=== PATIENT | male | born 1940 | race Caucasian/White ===

== ENCOUNTER 2016-11-04 09:14 | Inpatient (IN) | payer MEDICARE ==
[2016-11-04] VITALS (10 sets, daily range): BP systolic 96–146; BP diastolic 54–67; PULSE 66–73; RESP 18–20; TEMP 97.6–99; O2SAT 93–98
[~2016-11-04] VITALS: Ht 182.9 cm; Wt 120.0 kg
--- NOTE | 2016-11-04 09:50 | PD ---
HPI Chief Complaint: Altered Mental Status Time Seen by Provider: 09:50 Travel History International Travel<30 days: No Contact w/Intl Traveler<30days: No Traveled to known affect area: No History of Present Illness HPI 76-year-old male came to the emergency room with history of altered mental status. His daughter initiated the transfer to the emergency room from the jail and she was very concerned about her dad's waxing and waning mental status. Patient does have history of dementia. Currently he is awake and aware that he is in [facility]. He is confused regarding the date and the month. He was complaining of some discomfort in his rectal area but the nurse told me he just had a large bowel movement and also had a rectal temperature taken which was 98.8. His vital signs show a blood pressure of 98/ 58. Heart rate is within normal limits. Patient is not the most reliable historian. The history is obtained mainly from the paperwork that came from the jail. The nurse also happened to speak with the daughter over the phone who conveyed that they have been monitoring his ABGs in the jail and they have been fluctuating. [facility] Past Medical History Narrative Medical List of his past medical, surgical, social and family history was reviewed from the nursing note. AAA: Yes Alzheimer's Disease: Yes Atrial Fibrillation: Yes Congestive Heart Failure: Yes COPD: Yes Diabetes: Yes Patient Takes Glucophage: No GERD: Yes Hypertension: Yes Medical other: Yes (RENAL INSUFFICIENCY) Respiratory: Yes Tetanus Vaccination: Unknown Influenza Vaccination: Yes Past Surgical History Abdominal Surgery: Yes (INGUINAL HERNIA REPAIR) Thoracic Surgery: Yes (BACK ) Social History Alcohol Use: No Tobacco Use: No Allergies-Medications (Allergen,Severity, Reaction): Coded Allergies: No Known Allergies (Unverified , 11/04/16) Comments No known drug allergies. Reported Meds & Prescriptions Reported Meds & Active Scripts Active Reported Novolog Inj (Insulin Aspart) 1,000 Unit/10 Ml Vial 0 SQ DIRECTED Sliding Scale as directed. Norvasc (Amlodipine Besylate) 5 Mg Tab 5 Mg PO DAILY Crestor (Rosuvastatin Calcium) 40 Mg Tab 40 Mg PO HS Metoprolol Succinate ER 24 HR (Metoprolol Succinate) 25 Mg Tab 25 Mg PO DAILY Lexapro (Escitalopram Oxalate) 20 Mg Tab 20 Mg PO DAILY Plavix (Clopidogrel Bisulfate) 75 Mg Tab 75 Mg PO DAILY Aspirin 81 Low Dose (Aspirin) 81 Mg Chew 81 Mg CHEW DAILY Lantus Inj (Insulin Glargine) 100 Unit/Ml Inj 30 Units SQ DAILY@2000 Lantus Inj (Insulin Glargine) 100 Unit/Ml Inj 60 Units SQ DAILY@0800 Potassium Chloride CR (Potassium Chloride) 10 Meq Tab 10 Meq PO DAILY Alprazolam 0.5 Mg Tab 0.5 Mg PO Q8H PRN Duoneb (Ipratropium-Albuterol Neb) 0.5-2.5 Mg/3 Ml Neb 1 Nebule INH Q4HR NEB Tramadol (Tramadol HCl) 50 Mg Tab 100 Mg PO Q6H PRN Bumex (Bumetanide) 2 Mg Tab 2 Mg PO BID Famotidine 20 Mg Tab 20 Mg PO BID Florastor (Saccharomyces Boulardii) 250 Mg Cap 500 Mg PO BID Ceftin (Cefuroxime Axetil) 500 Mg Tab 500 Mg PO BID Narrative Medication List of his oral medications reviewed from the jail Review of Systems Except as stated in HPI: all other systems reviewed are Neg Physical Exam Narrative GENERAL: Awake, alert, dementia, no obvious distress, obese. SKIN: Warm and dry. Pale, senile ecchymosis HEAD: Atraumatic. Normocephalic. EYES: Pupils equal and round. No scleral icterus. No injection or drainage. ENT: No nasal bleeding or discharge. Mucous membranes pink and moist. NECK: Trachea midline. No JVD. CARDIOVASCULAR: Regular rate and rhythm. No murmur appreciated. RESPIRATORY: No accessory muscle use. Clear to auscultation. Breath sounds equal bilaterally. GASTROINTESTINAL: Abdomen soft, non-tender, nondistended. Hepatic and splenic margins not palpable. MUSCULOSKELETAL: No obvious deformities. No clubbing. No cyanosis. No edema. NEUROLOGICAL: Awake and dementia. No obvious cranial nerve deficits. Motor grossly within normal limits. Normal speech. PSYCHIATRIC: Appropriate mood and affect; insight and judgment normal. Data Data Last Documented VS Vital Signs Date Time Temp Pulse Resp B/P Pulse Ox O2 Delivery O2 Flow Rate FiO2 11/04/16 11:06 73 18 96/55 97 Nasal Cannula 3 11/04/16 10:29 98.3 Orders Electrocardiogram (11/04/16 09:59) Complete Blood Count With Diff (11/04/16 09:59) Comprehensive Metabolic Panel (11/04/16 09:59) Creatine Kinase (Cpk) (11/04/16 09:59) Prothrombin Time / Inr (Pt) (11/04/16 09:59) Troponin I (11/04/16 09:59) Thyroid Stimulating Hormone (11/04/16 09:59) Lactic Acid Sepsis Protocol (11/04/16 09:59) Urinalysis - C+S If Indicated (11/04/16 09:59) Blood Culture (11/04/16 09:59) Chest, Single Ap (11/04/16 09:59) Ct Brain W/O Iv Contrast(Rout) (11/04/16 09:59) Blood Glucose (11/04/16 09:59) Ecg Monitoring (11/04/16 09:59) Iv Access Insert/Monitor (11/04/16 09:59) Oximetry (11/04/16 09:59) Sodium Chloride 0.9% Flush (Ns Flush) (11/04/16 10:00) Urine Culture (11/04/16 10:30) Admit Order (Ed Use Only) (11/04/16 11:28) Labs Laboratory Tests Test 11/04/16 10:30 White Blood Count 9.5 TH/MM3 Red Blood Count 3.57 MIL/MM3 Hemoglobin 10.5 GM/DL Hematocrit 31.4 % Mean Corpuscular Volume 88.2 FL Mean Corpuscular Hemoglobin 29.5 PG Mean Corpuscular Hemoglobin 33.5 % Concent Red Cell Distribution Width 14.3 % Platelet Count 105 TH/MM3 Mean Platelet Volume 8.2 FL Neutrophils (%) (Auto) 81.0 % Lymphocytes (%) (Auto) 8.3 % Monocytes (%) (Auto) 7.8 % Eosinophils (%) (Auto) 2.7 % Basophils (%) (Auto) 0.2 % Neutrophils # (Auto) 7.7 TH/MM3 Lymphocytes # (Auto) 0.8 TH/MM3 Monocytes # (Auto) 0.7 TH/MM3 Eosinophils # (Auto) 0.3 TH/MM3 Basophils # (Auto) 0.0 TH/MM3 CBC Comment DIFF FINAL Differential Comment Prothrombin Time 12.2 SEC Prothromb Time International 1.1 RATIO Ratio Urine Color YELLOW Urine Turbidity CLEAR Urine pH 7.5 Urine Specific [place] 1.012 Urine Protein 30 mg/dL Urine Glucose (UA) NEG mg/dL Urine Ketones NEG mg/dL Urine Occult Blood NEG Urine Nitrite NEG Urine Bilirubin NEG Urine Urobilinogen LESS THAN 2.0 MG/DL Urine Leukocyte Esterase NEG Urine RBC 1 /hpf Urine WBC 1 /hpf Urine Transitional Epithelial <1 /hpf Cells Urine Bacteria RARE /hpf Urine Granular Casts 1 /lpf Microscopic Urinalysis Comment CATH-CULTURE IND Sodium Level 144 MEQ/L Potassium Level 3.4 MEQ/L Chloride Level 98 MEQ/L Carbon Dioxide Level 39.2 MEQ/L Anion Gap 7 MEQ/L Blood Urea Nitrogen 60 MG/DL Creatinine 3.00 MG/DL Estimat Glomerular Filtration 20 ML/MIN Rate Random Glucose 63 MG/DL Lactic Acid Level 0.8 mmol/L Calcium Level 7.5 MG/DL Total Bilirubin 0.4 MG/DL Aspartate Amino Transf 27 U/L (AST/SGOT) Alanine Aminotransferase 38 U/L (ALT/SGPT) Alkaline Phosphatase 136 U/L Total Creatine Kinase 54 U/L Troponin I 0.07 NG/ML Total Protein 5.7 GM/DL Albumin 2.6 GM/DL Vitamin B12 Level 551 PG/ML Thyroid Stimulating Hormone 2.930 uIU/ML 3rd Gen [facility] Medical Decision Making Medical Screen Exam Complete: Yes Emergency Medical Condition: Yes Medical Record Reviewed: Yes Interpretation(s) Twelve-lead EKG was reviewed by me. Normal sinus rhythm, normal axis, old anterior AL, interventricular conduction delay, nonspecific ST-T wave changes. Heart rate of 69 bpm. Differential Diagnosis UTI, pneumonia, sepsis, intracranial bleed, electrolyte abnormality Narrative Course 11:11 AM chest x-ray was read as left pleural effusion. Awaiting for the blood test and CAT scan to be resulted. 11:22 AM blood test results came back and creatinine is 3. I do not have any old creatinine to compare with. This is his first visit to [place]. Patient will need to be admitted. Procedures EKG Prior to Arrival: No Diagnosis Primary Impression: Altered mental status Qualified Code: R41.0 - Disorientation Additional Impressions: Renal failure Pleural effusion Elevated troponin I level Admitting Information Admitting Physician Requests: Admit Magda Chung MD Nov 04, 2016 09:50
[2016-11-04] MEDS ORDERED: LANTUS2P SQ ×2 (09:54)
[2016-11-04] MEDS ORDERED: POTA10TA8 PO (09:54)
[2016-11-04] MEDS ORDERED: NOVOLOGP2 SQ (09:54)
[2016-11-04] MEDS ORDERED: METO25TA6 PO (09:54)
[2016-11-04] MEDS ORDERED: IPRASOL INH (09:54)
[2016-11-04] MEDS ORDERED: ASPI81CH3 CHEW (09:54)
[2016-11-04] MEDS ORDERED: TRAM50TA PO (09:54)
[2016-11-04] MEDS ORDERED: ALPR0.5T3 PO (09:54)
[2016-11-04] MEDS ORDERED: ROSU40 PO (09:54)
[2016-11-04] MEDS ORDERED: FAMO20TA2 PO (09:54)
[2016-11-04] MEDS ORDERED: FLOR250C PO (09:54)
[2016-11-04] MEDS ORDERED: PLAV75TA29 PO (09:54)
[2016-11-04] MEDS ORDERED: BUME1TAB28 PO (09:54)
[2016-11-04] MEDS ORDERED: CEFT500T3 PO (09:54)
[2016-11-04] MEDS ORDERED: LEXA20TA PO (09:54)
[2016-11-04] MEDS ORDERED: AMLO5 PO (09:54)
--- NOTE | 2016-11-04 10:37 | RADRPT ---
EXAM DATE/TIME: 11/04/2016 09:57 [facility] COMPARISON: No previous studies available for comparison. INDICATIONS : Shortness of breath. MEDICAL HISTORY : None. SURGICAL HISTORY : None. ENCOUNTER: Initial ACUITY: 1 day PAIN SCORE: 0/10 LOCATION: Bilateral chest FINDINGS: The heart size is enlarged. There is hazy density seen over the left chest. The right lung appears cl ear. CONCLUSION: 1. Cardiomegaly. 2. Hazy density in the left chest likely representing some degree of effusion. Andrew Dhaliwal MD on November 04, 2016 at 10:35 Board Certified Radiologist. This report was verified electronically.
[2016-11-04 11:03] LABS: BACTERIA, URINE RARE /hpf; BLOOD, URINE NEG (NEG); GLUCOSE,URINE NEG (NEG); GRANULAR CAST, URINE 1 /lpf; KETONE, URINE NEG (NEG); NITRITE,URINE NEG (NEG); PH, URINE 7.5 (5.0-8.5); TRANSITIONAL EPI CELLS, URINE <1 /hpf; URINE COLOR YELLOW (YELLW/STRAW)
[2016-11-04 11:04] LABS: COMMENT (UR) CATH-CULTURE IND; CULTURE IF INDICATED CATH CULTURE IND
--- NOTE | 2016-11-04 11:04 | RADRPT ---
EXAM DATE/TIME: 11/04/2016 10:52 [facility] COMPARISON: No previous studies available for comparison. INDICATIONS : Mental status change for three days. RADIATION DOSE: 49.35 CTDIvol (mGy) MEDICAL HISTORY : Hypertension. Cerebrovascular disease. Alzheimers. SURGICAL HISTORY : None. ENCOUNTER: Initial ACUITY: 3 days PAIN SCALE: Non-responsive LOCATION: cranial TECHNIQUE: Multiple contiguous axial images were obtained of the head. Using automated exposure control and adj ustment of the mA and/or kV according to patient size, radiation dose was kept as low as reasonably a chievable to obtain optimal diagnostic quality images. FINDINGS: CEREBRUM: The ventricles and cortical sulci are widened. No evidence of midline shift, mass lesion, hemorrhage or acute infarction. No extra-axial fluid collections are seen. POSTERIOR FOSSA: The cerebellum and brainstem are intact. The 4th ventricle is midline. The cerebellopontine angle i s unremarkable. EXTRACRANIAL: The visualized portion of the orbits is intact. SKULL: The calvaria is intact. No evidence of skull fracture. CONCLUSION: 1. No acute abnormality seen. 2. Age-related atrophy. Andrew Dhaliwal MD on November 04, 2016 at 11:02 Board Certified Radiologist. This report was verified electronically.
[2016-11-04 11:05] LABS: AUTOMATED NEUTROPHIL # 7.7 TH/MM3 (1.8-7.7); BASOPHIL % 0.2 % (0.0-2.0); EOSINOPHIL # 0.3 TH/MM3 (0-0.4); EOSINOPHIL % 2.7 % (0.0-4.0); HEMATOCRIT 31.4 % (39.0-51.0); HEMO FLAGS DIFF FINAL; LYMPH % 8.3 % (9.0-44.0); LYMPHOCYTE # 0.8 TH/MM3 (1.0-4.8); MEAN CELL VOLUME 88.2 FL (80.0-100.0); MEAN CORPUSCULAR HEMOGLOBIN 29.5 PG (27.0-34.0); MEAN CORPUSCULAR HGB CONC 33.5 % (32.0-36.0); MONO % 7.8 % (0.0-8.0); PLATELET COUNT 105 TH/MM3 (150-450); RED BLOOD COUNT 3.57 MIL/MM3 (4.50-5.90); RED CELL DISTRIBUTION WIDTH 14.3 % (11.6-17.2); WHITE BLOOD COUNT 9.5 TH/MM3 (4.0-11.0)
[2016-11-04 11:08] LABS: INTERNATIONAL NORMALIZED RATIO 1.1 RATIO; PROTHROMBIN TIME - PATIENT 12.2 SEC (9.8-11.6)
[2016-11-04 11:17] LABS: ANION GAP 7 MEQ/L (5-15); AST (GOT) 27 U/L (15-37); BICARBONATE 39.2 MEQ/L (21.0-32.0); BLOOD UREA NITROGEN 60 MG/DL (7-18); CHLORIDE 98 MEQ/L (98-107); GLOMERULAR FILTRATION RATE 20 ML/MIN (>89); POTASSIUM 3.4 MEQ/L (3.5-5.1); SODIUM (NA) 144 MEQ/L (136-145)
[2016-11-04 11:33] LABS: ALKALINE PHOSPHATASE 136 U/L (45-117); ALT (GPT) 38 U/L (12-78); CREATINE KINASE 54 U/L (39-308); TOTAL BILIRUBIN ADULT 0.4 MG/DL (0.2-1.0)
--- NOTE | 2016-11-04 12:12 | HHI.HP ---
HPI Service [facility] Hospitalists Primary Care Physician No Primary Care Physician Admission Diagnosis ams Chief Complaint: ams Travel History International Travel<30 Days: No Contact w/Intl Traveler <30 Da: No Traveled to Known Affected Are: No History of Present Illness Pt is 76 yo with ckd 4,cad,dm,dementia,copd who was sent to ED from [facility] at request of daughter for waxing and waning mental status. Pt has some degree of dementia but able to give some history. He is currently very tearful and anxious/panicky due to of his in June. He was admitted to [facility] for drainage of perineum abscess then discharged and readmitted 2 days later on 10/24/16 per records. On review of records he was readmitted for volume overload, acute/ckd, sob and copd exacerbation and possible pneumonia in left lower lung. he was seen by nephrology and pulmonary during that hospital stay. His admitting labs included h/h of , wbc 11.9, plt 224. abg 7.29/66/58/92% on nasal canula. bnp 470, bun 31, cr 2.2, gfr 29. he was admitted to ICU for hypercapneic respiratory failure and placed on bipap. he was given iv solumedrol, nebs, treated with Ceftarolin throughout the hospital course and MAR also indicated bumex 4mg iv q6hr from 10/29 to 11/02. On discharge on 11/02 his wbc was 9.8, hgb 10.7, plt 186, bun 66, cr 2.7 and gfr 23. Albumin 3.2. He again now presents today from sn[facility] for "AMS". Pt says his main problem is intermittent sob. Review of Systems Other ams sob Past Family Social History Past Medical History cad(4 stents per records) afib AAA dementia ckd 4 copd chf per records. bph gallstones pad peripheral neuropathy prostate ca. radiation seeds hyperlipidemia htn depression cataract surgery inguinal hernia repair pulmonary embolism Reported Medications Novolog Inj (Insulin Aspart) 1,000 Unit/10 Ml Vial 0 SQ DIRECTED Sliding Scale as directed. Norvasc (Amlodipine Besylate) 5 Mg Tab 5 Mg PO DAILY Crestor (Rosuvastatin Calcium) 40 Mg Tab 40 Mg PO HS Metoprolol Succinate ER 24 HR (Metoprolol Succinate) 25 Mg Tab 25 Mg PO DAILY Lexapro (Escitalopram Oxalate) 20 Mg Tab 20 Mg PO DAILY Plavix (Clopidogrel Bisulfate) 75 Mg Tab 75 Mg PO DAILY Aspirin 81 Low Dose (Aspirin) 81 Mg Chew 81 Mg CHEW DAILY Lantus Inj (Insulin Glargine) 100 Unit/Ml Inj 30 Units SQ DAILY@2000 Lantus Inj (Insulin Glargine) 100 Unit/Ml Inj 60 Units SQ DAILY@0800 Potassium Chloride CR (Potassium Chloride) 10 Meq Tab 10 Meq PO DAILY Alprazolam 0.5 Mg Tab 0.5 Mg PO Q8H PRN Duoneb (Ipratropium-Albuterol Neb) 0.5-2.5 Mg/3 Ml Neb 1 Nebule INH Q4HR NEB Tramadol (Tramadol HCl) 50 Mg Tab 100 Mg PO Q6H PRN Bumex (Bumetanide) 2 Mg Tab 2 Mg PO BID Famotidine 20 Mg Tab 20 Mg PO BID Florastor (Saccharomyces Boulardii) 250 Mg Cap 500 Mg PO BID Ceftin (Cefuroxime Axetil) 500 Mg Tab 500 Mg PO BID Allergies: Coded Allergies: No Known Allergies (Unverified , 11/04/16) Family History nc Social History hx etohism per records Physical Exam Vital Signs Vital Signs Date Time Temp Pulse Resp B/P Pulse Ox O2 Delivery O2 Flow Rate FiO2 11/04/16 11:06 73 18 96/55 97 Nasal Cannula 3 11/04/16 10:29 98.3 98 Nasal Cannula 3 11/04/16 09:34 18 95 Nasal Cannula 3 11/04/16 09:27 99.0 69 18 123/54 94 Laboratory Laboratory Tests Test 11/04/16 10:30 White Blood Count 9.5 Red Blood Count 3.57 Hemoglobin 10.5 Hematocrit 31.4 Mean Corpuscular Volume 88.2 Mean Corpuscular Hemoglobin 29.5 Mean Corpuscular Hemoglobin 33.5 Concent Red Cell Distribution Width 14.3 Platelet Count 105 Mean Platelet Volume 8.2 Neutrophils (%) (Auto) 81.0 Lymphocytes (%) (Auto) 8.3 Monocytes (%) (Auto) 7.8 Eosinophils (%) (Auto) 2.7 Basophils (%) (Auto) 0.2 Neutrophils # (Auto) 7.7 Lymphocytes # (Auto) 0.8 Monocytes # (Auto) 0.7 Eosinophils # (Auto) 0.3 Basophils # (Auto) 0.0 CBC Comment DIFF FINAL Differential Comment Prothrombin Time 12.2 Prothromb Time International 1.1 Ratio Urine Color YELLOW Urine Turbidity CLEAR Urine pH 7.5 Urine Specific [place] 1.012 Urine Protein 30 Urine Glucose (UA) NEG Urine Ketones NEG Urine Occult Blood NEG Urine Nitrite NEG Urine Bilirubin NEG Urine Urobilinogen LESS THAN 2.0 Urine Leukocyte Esterase NEG Urine RBC 1 Urine WBC 1 Urine Transitional Epithelial <1 Cells Urine Bacteria RARE Urine Granular Casts 1 Microscopic Urinalysis Comment CATH-CULTURE IND Sodium Level 144 Potassium Level 3.4 Chloride Level 98 Carbon Dioxide Level 39.2 Anion Gap 7 Blood Urea Nitrogen 60 Creatinine 3.00 Estimat Glomerular Filtration 20 Rate Random Glucose 63 Lactic Acid Level 0.8 Calcium Level 7.5 Total Bilirubin 0.4 Aspartate Amino Transf 27 (AST/SGOT) Alanine Aminotransferase 38 (ALT/SGPT) Alkaline Phosphatase 136 Total Creatine Kinase 54 Troponin I 0.07 Total Protein 5.7 Albumin 2.6 Thyroid Stimulating Hormone 2.930 3rd Gen Date/Time Procedure Status Source Growth 11/04/16 10:35 Aerobic Blood Culture Received Blood Peripheral Pending 11/04/16 10:35 Anaerobic Blood Culture Received Blood Peripheral Pending 11/04/16 10:30 Urine Culture Received Urine Catheterized Urine Pending Result Diagram: 11/04/16 1030 11/04/16 1030 Assessment and Plan Problem List: (1) Acute worsening of stage 4 chronic kidney disease Status: Acute Plan: Pt is 76 yr man recently admitted to [facility] for perineum abscess then readmitted on 10/24 for hypercapneic respiratory failure, copd exacerbation left lung pna, acute/ckd with volume overload. He was sent to [facility] on 11/02 and sent here today for sob/ams complaints. acute on ckd 4..could be prerenal from diuretics sob...probably anxiety/panick component. grieving of ..but also cxr shows hazy left lung field...evaluate for significant effusion. Pt was being treated for copd/pna at the other hospital. at present no apparent exacerbation or pna. AMS.. Pt said to have some degree of dementia. waxing/waning confusion reported could be multifactorial from medications or kadeem, depression. will evaluate to assure no acute hypercapnea. check metabolic panel. also his bg was [address] chest to evaluate left lung field hold diuretic tonight and reassess cr/gfr in AM telemetry abg echo cont nebs scheduled for copd consider renal consult in AM PT eval in AM anxiolytics for anxiety/panick attacks. monitor bg closely for fluctuation/hypoglycemia. (2) Altered mental status Status: Acute Plan: above (3) DM (diabetes mellitus) Status: Chronic Plan: has hypoglycemia on admitssion of 63 lower basal insulin for now monitor ssi. (4) COPD (chronic obstructive pulmonary disease) Status: Chronic Plan: cont nebs. check abg (5) CAD (coronary artery disease) Status: Chronic Plan: 4 stents per records cont home meds (6) HTN (hypertension) Status: Chronic (7) Dementia Status: Chronic (8) Depression Status: Chronic Plan: still grieving loss of in June. very anxious and panicky also. (9) Thrombocytopenia Status: Acute Plan: see above Physician Certification 2 Midnight Certification Type: Admission for Inpatient Services Order for Inpatient Services 3The services are ordered in accordance with Medicare regulations or non- Medicare payer requirements, as applicable. In the case of services not specified as inpatient-only, they are appropriately provided as inpatient services in accordance with the 2-midnight benchmark. Estimated LOS (days): 3 3 days is the estimated time the patient will need to remain in the hospital, assuming treatment plan goals are met and no additional complications. Post-Hospital Plan: SNF Problem Qualifiers (1) Altered mental status: Qualified Code: R41.0 - Disorientation Santi Ramirez MD Nov 04, 2016 12:12
[2016-11-04] MEDS ORDERED: POTASSIUM CHLORIDE 20 MEQ CONTROLLED RELEASE TAB PO ONE (14:00)
[2016-11-04] MEDS: ALPRAZolam 0.5 MG TAB PO PRN (14:25)
--- NOTE | 2016-11-04 15:18 | RADRPT ---
EXAM DATE/TIME: 11/04/2016 14:25 [facility] COMPARISON: No previous studies available for comparison. INDICATIONS : Short of breath. Abnormal chest x-ray. RADIATION DOSE: 10.84 CTDIvol (mGy) MEDICAL HISTORY : Alzheimer's Congestive heart failure. Aneurysm, abdominal. Hypertension. Diabetes. SURGICAL HISTORY : Inguinal hernia repair. ENCOUNTER: Initial ACUITY: 1 day PAIN SCALE: 0/10 LOCATION: Chest TECHNIQUE: Volumetric scanning of the chest was performed. Using automated exposure control and adjustment of t he mA and/or kV according to patient size, radiation dose was kept as low as reasonably achievable to obtain optimal diagnostic quality images. FINDINGS: There is a mild left pleural effusion. There is accompanying atelectasis or consolidation at the posterior left lower lobe. There is some minimal suspected atelectasis at the posterior aspec t of right lower lobe. No focal masses are seen. Coronary artery calcifications are seen. No areas of adenopathy ar e seen. There is some focal areas of increased density seen within the gallbladder likely representing small calcif ied gallstones. The gallbladder does appear distended. The bony structures are unremarkable. CONCLUSION: 1. Mild left pleural effusion with some accompanying atelectasis or consolidation at the posterior left lung base. 2. Minimal suspected atelectasis at the posterior right lower lobe. 3. Possible tiny gallstones. Andrew Dhaliwal MD on November 04, 2016 at 14:54 Board Certified Radiologist. This report was verified electronically.
[2016-11-04] MEDS: RESP: ALBUTEROL 2.5 MG/IPRATROPIUM 0.5 MG NEB (SCH) NEB ×2 (15:33→20:04)
[2016-11-04] MEDS: INSULIN ASPART SUPPLEMENTAL SCALE SQ SCH ×2 (16:00→21:00)
[2016-11-04] MEDS ORDERED: BUMETANIDE 1 MG TAB PO SCH (21:00)
[2016-11-04] MEDS: INSULIN DETEMIR 100 UNITS/ML VIAL SQ SCH (21:13)
[2016-11-04] MEDS: ATORVASTATIN 80 MG TAB PO SCH (21:13)
[2016-11-04] MEDS: LACTOBACILLUS ACIDOPHILUS TAB PO SCH (21:13)
[2016-11-05] VITALS (11 sets, daily range): BP systolic 120–130; BP diastolic 57–62; PULSE 66–79; RESP 16–21; TEMP 97.6–98.2; O2SAT 96–100
[2016-11-05] MEDS: ALPRAZolam 0.5 MG TAB PO PRN ×3 (00:04→20:30)
[2016-11-05] MEDS: traMADol HCL 50 MG TAB PO PRN ×3 (03:28→22:29)
[2016-11-05] MEDS: INSULIN ASPART SUPPLEMENTAL SCALE SQ SCH ×4 (05:00→20:32)
[2016-11-05 05:27] LABS: AUTOMATED NEUTROPHIL # 7.6 TH/MM3 (1.8-7.7); BASOPHIL # 0.1 TH/MM3 (0-0.2); BASOPHIL % 0.6 % (0.0-2.0); EOSINOPHIL # 0.3 TH/MM3 (0-0.4); EOSINOPHIL % 3.2 % (0.0-4.0); HEMATOCRIT 30.1 % (39.0-51.0); HEMO FLAGS DIFF FINAL; LYMPH % 9.1 % (9.0-44.0); LYMPHOCYTE # 0.9 TH/MM3 (1.0-4.8); MEAN CELL VOLUME 89.9 FL (80.0-100.0); MEAN CORPUSCULAR HEMOGLOBIN 30.4 PG (27.0-34.0); MEAN CORPUSCULAR HGB CONC 33.8 % (32.0-36.0); MONO % 8.2 % (0.0-8.0); NEUT % 78.9 % (16.0-70.0); PLATELET COUNT 100 TH/MM3 (150-450); RED BLOOD COUNT 3.35 MIL/MM3 (4.50-5.90); RED CELL DISTRIBUTION WIDTH 13.9 % (11.6-17.2); WHITE BLOOD COUNT 9.6 TH/MM3 (4.0-11.0)
[2016-11-05 05:46] LABS: POTASSIUM 3.6 MEQ/L (3.5-5.1)
[2016-11-05 06:25] LABS: BLOOD GAS BASE EXCESS 10.7 mmol/L (-2-2); BLOOD GAS CARBOXYHEMOGLOBIN 1.9 % (0-4); BLOOD GAS HCO3 35 mmol/L (22-26); BLOOD GAS METHEMOGLOBIN 0.8 % (0-2); BLOOD GAS O2 HGB SATURATION 92 % (90-100); BLOOD GAS OXYGEN CONTENT 17.4 Vol % (12.0-20.0); BLOOD GAS PCO2 53 mmHg (38-42); BLOOD GAS PO2 76 mmHg (61-120); BLOOD GAS TOTAL HGB 13.4 G/DL (12.0-16.0); TEMP CORR TO 98.6
[2016-11-05 06:26] LABS: CRITICAL VALUE YES; DRAW SITE RT RADIAL; FIO2 21 %; NUMBER OF ARTERIAL PUNCTURES 1; OXYGEN DEVICE ROOM AIR; STAT NO; ULNAR PULSE PRESENT
[2016-11-05] MEDS: RESP: ALBUTEROL 2.5 MG/IPRATROPIUM 0.5 MG NEB (SCH) NEB ×4 (08:34→19:05)
[2016-11-05] MEDS: INSULIN DETEMIR 100 UNITS/ML VIAL SQ SCH ×2 (09:00→20:30)
[2016-11-05] MEDS: LACTOBACILLUS ACIDOPHILUS TAB PO SCH ×2 (09:03→20:30)
[2016-11-05] MEDS: POTASSIUM CHLORIDE 10 MEQ CONTROLLED RELEASE TAB PO SCH (09:03)
[2016-11-05] MEDS: amLODIPine BESYLATE 5 MG TAB PO SCH (09:03)
[2016-11-05] MEDS: ESCITALOPRAM OXALATE 20 MG TAB PO SCH (09:03)
[2016-11-05] MEDS: ASPIRIN 81 MG CHEW TAB CHEW SCH (09:03)
[2016-11-05] MEDS: METOPROLOL SUCCINATE 25 MG EXTENDED RELEASE TAB PO SCH (09:03)
[2016-11-05] MEDS: CLOPIDOGREL 75 MG TAB PO SCH (09:03)
--- NOTE | 2016-11-05 12:03 | EC ---
Study Study Date:11/05/2016 STUDY CONCLUSIONS SUMMARY - Left ventricle: The cavity size was normal. Wall thickness was normal. Systolic function was normal. The estimated ejection fraction was in the range of 55% to 60%. Wall motion was normal; there were no regional wall motion abnormalities. - Mitral valve: Mild regurgitation. - Pulmonary arteries: PA peak pressure: 39mm Hg (S). If LV function is below 40, please consider prescribing an ACEI or ARB or document rationale for non-use. PROCEDURE DATA STUDY STATUS: Elective. Procedure: Transthoracic echocardiography. Image quality was good. Scanning was performed from the parasternal, apical, and subcostal acoustic windows. Study completion: The patient tolerated the procedure well. Transthoracic echocardiography. M-mode, complete 2D, complete spectral Doppler, and color Doppler. Patient status: Inpatient. CARDIAC ANATOMY LEFT VENTRICLE: The cavity size was normal. Wall thickness was normal. Systolic function was normal. The estimated ejection fraction was in the range of 55% to 60%. Wall motion was normal; there were no regional wall motion abnormalities. AORTIC VALVE: Trileaflet; normal thickness leaflets. Doppler: Transvalvular velocity was within the normal range. There was no stenosis. No regurgitation. AORTA: Aortic root: The aortic root was normal in size. MITRAL VALVE: Structurally normal valve. Doppler: Transvalvular velocity was within the normal range. There was no evidence for stenosis. Mild regurgitation. LEFT ATRIUM: The atrium was normal in size. RIGHT VENTRICLE: The cavity size was normal. Wall thickness was normal. PULMONIC VALVE: Doppler: Transvalvular velocity was within the normal range. There was no evidence for stenosis. No regurgitation. TRICUSPID VALVE: Structurally normal valve. Doppler: Transvalvular velocity was within the normal range. No regurgitation. PULMONARY ARTERY: The main pulmonary artery was normal-sized. Systolic pressure was within the normal range. RIGHT ATRIUM: The atrium was normal in size. PERICARDIUM: There was no pericardial effusion. SYSTEMIC VEINS: Inferior vena cava: The vessel was normal in size. BASIC MEASUREMENTS ADULT Normal Left ventricle LV internal dimension, ED, chordal level, *52.1 mm 43-52 PLAX LV internal dimension, ES, chordal level, 37.9 mm 23-38 PLAX Fractional shortening, chordal level, PLAX *27 % >29 LV posterior wall thickness, ED 14.1 mm IVS/LVPW ratio, ED 1.12 <1.3 Ventricular septum Septal thickness, ED 15.8 mm Aortic valve Leaflet separation 26 mm 15-26 Right ventricle RV internal dimension, ED, PLAX 32.6 mm 19-38 BASIC MEASUREMENTS ADULT Normal Aortic valve Leaflet separation 26 mm 15-26 Aorta Root diameter, ED *38 mm 20-37 Left atrium Anterior-posterior dimension, ES 40 mm 19-40 LA/aortic root ratio 1.05 DOPPLER MEASUREMENTS ADULT Normal Main pulmonary artery Pressure, S *39 mm Hg =30 Mitral valve Peak E-wave velocity 65.2 cm/s Peak A-wave velocity 67.6 cm/s Peak E/A ratio 1 Tricuspid valve Regurgitant peak velocity 267 cm/s Peak RV-RA gradient, S 29 mm Hg Maximal regurgitant velocity 267 cm/s Systemic veins Estimated CVP 10 mm Hg Right ventricle RV pressure, S *39 mm Hg <30 LEGEND: Mean values are shown as u=mean value. Asterisk (*) herrera values outside specified normal range. Prepared and signed by Isidoro Mullen [id number]
--- NOTE | 2016-11-05 12:41 | HHI.PR ---
Subjective Remarks No new complaints. Objective Vitals Vital Signs Date Time Temp Pulse Resp B/P Pulse Ox O2 Delivery O2 Flow Rate FiO2 11/05/16 12:24 97.9 66 20 120/59 96 11/05/16 08:35 98.0 72 20 128/62 98 11/05/16 08:34 98 Nasal Cannula 2.00 11/05/16 08:30 Nasal Cannula 3.00 11/05/16 08:00 73 11/05/16 06:30 96 11/05/16 04:00 97.8 66 18 129/58 100 11/05/16 00:00 Nasal Cannula 2.00 11/05/16 00:00 98.2 71 18 127/60 99 11/05/16 00:00 Nasal Cannula 2.00 11/04/16 23:48 66 11/04/16 21:00 Nasal Cannula 3.00 11/04/16 20:04 93 Nasal Cannula 2.00 11/04/16 20:00 Nasal Cannula 3.00 11/04/16 20:00 98.4 70 20 138/64 97 11/04/16 17:50 97.6 73 20 138/64 93 11/04/16 16:24 72 18 146/67 97 Nasal Cannula 3 11/04/16 14:23 94 Nasal Cannula 2.00 11/04/16 13:05 69 18 124/59 94 Nasal Cannula 2 11/04/16 11/04/16 11/05/16 15:00 23:00 07:00 Intake Total 160 ml 480 ml Balance 160 ml 480 ml Intake Oral 160 ml 480 ml # Voids 3 3 Result Diagram: 11/05/1651311/05/16513 Other Results Item Value Date Time Blood Gas HCO3 35 mmol/L H 11/05/16613 Blood Gas Base Excess 10.7 mmol/L H 11/05/16613 Blood Gas Oxygen Saturation 92 % 11/05/16613 Arterial Blood pH 7.44 H 11/05/16613 Arterial Blood Partial Pressure CO2 53 mmHg *H 11/05/16613 Arterial Blood Partial Pressure O2 76 mmHg 11/05/16613 Arterial Blood Oxygen Content 17.4 Vol % 11/05/16613 Arterial Blood Carboxyhemoglobin 1.9 % 11/05/16613 Oxygen Delivery Device ROOM AIR 3/13/17 0614 Blood Gas Inspired Oxygen 21 % 11/05/16 0614 Imaging Objective Remarks GENERAL: This is a well-nourished, well-developed patient, in no apparent distress. CARDIOVASCULAR: Regular rate and rhythm without murmurs, gallops, or rubs. RESPIRATORY: Clear to auscultation. Breath sounds equal bilaterally. No wheezes , rales, or rhonchi. GASTROINTESTINAL: Abdomen soft, non-tender, nondistended. Normal active bowel sounds MUSCULOSKELETAL: Extremities without clubbing, cyanosis, or edema. NEURO: Alert & Oriented x4 to person, place, time, situation. Moves all ext x4 A/P Problem List: (1) Acute worsening of stage 4 chronic kidney disease Status: Acute Plan: Pt is 76 yr man recently admitted to [facility] for perineum abscess then readmitted on 10/24 for hypercapneic respiratory failure, copd exacerbation left lung pna, acute/ckd with volume overload. He was sent to [facility] on 11/02 and sent here today for sob/ams complaints. acute on ckd 4..could be prerenal from diuretics echo cont nebs scheduled for copd consider renal consult in AM PT eval in AM anxiolytics for anxiety/panick attacks. monitor bg closely for fluctuation/hypoglycemia. (2) Altered mental status Status: Acute Plan: - CT brain (11/04/16) --> NO acute findings - likely multifactorial: dementia?, chronic hypercapnic respiratory failure, hypoglycemia, uremia - will address possible reversible causes - obtain free T4, folate, RPR - TSH, B12 --> WNL - see below (3) COPD (chronic obstructive pulmonary disease) Status: Chronic Plan: - likely anxiety, chronic hypercapnia contributing to SOB - continue albuterol/atrovent - ABG (11/05/16) --> Arterial Blood Partial Pressure CO2 53 mmHg - start nightly BiPap - request Pulmonary Consult (4) DM (diabetes mellitus) Status: Chronic Plan: - had hypoglycemia on admitssion of 63 - Pt was hypoglycemic this AM (11/05/16) at 45 and given juice - levemir further decreased to 15 units BID, will adjust upwards if this proves necessary - continue SSI (5) CAD (coronary artery disease) Status: Chronic Plan: 4 stents per records cont home meds - echocardiogram --> pending - ASA, plavix, metoprolol, lipitor (6) HTN (hypertension) Status: Chronic Plan: - metoprolol, norvasc (7) Dementia Status: Chronic (8) Depression Status: Chronic Plan: still grieving loss of in June. very anxious and panicky also. - lexapro, xanax (9) Thrombocytopenia Status: Acute Plan: - observe Problem Qualifiers (1) Altered mental status: Qualified Code: R41.0 - Disorientation (2) DM (diabetes mellitus): Qualified Code: E11.8 - Type 2 diabetes mellitus with complication, with long- term current use of insulin (3) CAD (coronary artery disease): Qualified Code: I25.10 - Coronary artery disease involving [place] heart without angina pectoris, unspecified vessel or lesion type (4) HTN (hypertension): Qualified Code: I10 - Essential hypertension Louie Chapin DO Nov 05, 2016 12:41
--- NOTE | 2016-11-05 14:53 | EKG ---
Date Performed: 11/04/2016 Time Performed: 08:28:47 PTAGE: 76 years EKG: Sinus rhythm MODERATE INTRAVENTRICULAR CONDUCTION DELAY NONSPECIFIC ST & T-WAVE ABNORMALITY ABNORMAL ECG NO PREVIOUS TRACING DOCTOR: Nika Cabrera Interpretating Date/Time 11/05/2016 14:49:16
[2016-11-05 14:56] LABS: FREE T4 1.09 NG/DL (0.76-1.46)
[2016-11-05] MEDS: ATORVASTATIN 80 MG TAB PO SCH (20:30)
[2016-11-05] MEDS: SODIUM CHLORIDE 0.9% FLUSH 5 ML FLUSH IVF PRN (20:32)
--- NOTE | 2016-11-05 22:16 | MB ---
cc: SWATHI POTTS MD DATE OF CONSULTATION 11/05/[address] Louie Chapin REASON FOR CONSULTATION COPD and altered mental status. HISTORY OF THE PRESENT ILLNESS Mr. Malik is a pleasant 76-year-old male with history of COPD, obstructive sleep apnea, history of dementia. The patient was recently admitted at a [facility] twice, one time he had renal abscess drainage done. The other time was chronic obstructive pulmonary disease exacerbation and fluid overload. Now he comes to the hospital with altered mental status. He had a workup done in the hospital. His blood gas shows pH 7.44, pCO2 53, pO2 76, bicarb 35 on room air. His WBC count is 9.6, hemoglobin 10.2, hematocrit 30.1 and MCV 89, platelet count 100. His sodium 145, potassium 3.6, chloride 101, CO2 38, BUN 52, creatinine 2.73, glucose 45. IMAGING His CT scan of the brain shows no acute abnormality. CT scan of the chest shows minimal left atelectasis with effusion or consolidation, possible underlying gallstones. The patient is on nasal cannula. He has hiccups. He denies any nausea or vomiting. PAST MEDICAL HISTORY His past medical history is significant for: 1. A history of COPD. 2. Obstructive sleep apnea; 3. Atrial fibrillation. 4. Coronary artery disease. 5. Chronic kidney disease. 6. Congestive heart failure. 7. History of gallstone. 8. Peripheral neuropathy. 9. History of CA of the prostate status post radiation seeds. 10. History of pulmonary embolism. MEDICATIONS He is currently takin. Insulin 15 units q. 12-hour. 2. Amlodipine 5 mg a day. 3. Aspirin 81 mg a day. 4. Plavix 75 mg a day. 5. Lexapro 20 mg a day. 6. Toprol XL 25 mg a day. 7. Potassium 10 mEq a day. 8. Lipitor 40 mg. 9. Xanax p.r.n. ALLERGIES NO KNOWN DRUG ALLERGIES. SOCIAL HISTORY History of alcohol use. Denies any smoking. FAMILY HISTORY Noncontributory. REVIEW OF SYSTEMS Cannot assess. PHYSICAL EXAMINATION GENERAL: Shows a well built, well-nourished elderly male shortness of breath, not in any acute distress. VITAL SIGNS: Blood pressure 130/60, heart rate 70, respirations 21, temperature 97.6. HEENT: Pupils are equal and reactive to light . Oral mucosa, nasal mucosa normal. NECK: Supple. JVP not raised. CHEST: Slightly decreased breath sounds at the bases. CARDIOVASCULAR: S1, S2 normal. ABDOMEN: Benign. EXTREMITIES: Trace pedal edema. IMPRESSION 1. COPD. 2. Obstructive sleep apnea. 3. Compensated respiratory acidosis. 4. Chronic kidney disease. 5. Diabetes mellitus. 6. Underlying dementia. 7. Atrial fibrillation. 8. History of pulmonary embolism. PLAN We will use C-PAP at night time if possible. The patient's family can bring the C-PAP from his home, that way he can use his own mask. We will give him aerosol treatment with albuterol and Atrovent. Supplement his oxygen. We will keep the saturation greater than 92%. Monitor his blood sugar and electrolytes. Further treatment will depend on the course in the hospital. Thank you Dr. Chapin for this consultation. MD POP Silva/[place] /5:23 PM /8:55 PM ARMAND
[2016-11-06] VITALS (12 sets, daily range): BP systolic 118–131; BP diastolic 57–64; PULSE 66–73; RESP 18–20; TEMP 97.2–98.1; O2SAT 94–100
[2016-11-06] MEDS: ALPRAZolam 0.5 MG TAB PO PRN ×2 (06:15→22:43)
[2016-11-06] MEDS: traMADol HCL 50 MG TAB PO PRN (06:15)
[2016-11-06] MEDS: INSULIN ASPART SUPPLEMENTAL SCALE SQ SCH ×4 (06:17→20:05)
[2016-11-06] MEDS: RESP: ALBUTEROL 2.5 MG/IPRATROPIUM 0.5 MG NEB (SCH) NEB ×4 (08:00→19:10)
[2016-11-06] MEDS: INSULIN DETEMIR 100 UNITS/ML VIAL SQ SCH ×2 (09:00→20:05)
[2016-11-06] MEDS: amLODIPine BESYLATE 5 MG TAB PO SCH (09:48)
[2016-11-06] MEDS: ESCITALOPRAM OXALATE 20 MG TAB PO SCH (09:53)
[2016-11-06] MEDS: POTASSIUM CHLORIDE 10 MEQ CONTROLLED RELEASE TAB PO SCH (09:53)
[2016-11-06] MEDS: ASPIRIN 81 MG CHEW TAB CHEW SCH (09:53)
[2016-11-06] MEDS: CLOPIDOGREL 75 MG TAB PO SCH (09:53)
[2016-11-06] MEDS: LACTOBACILLUS ACIDOPHILUS TAB PO SCH ×2 (09:53→20:05)
[2016-11-06] MEDS: METOPROLOL SUCCINATE 25 MG EXTENDED RELEASE TAB PO SCH (09:53)
[2016-11-06 10:16] LABS: RAPID PLASMA REAGIN SCREEN NON-REACTIVE (NON-REACTVE)
--- NOTE | 2016-11-06 15:29 | HHI.PR ---
Subjective Remarks Per nursing, pt was awake most of last night. Pt had some anxiety and received xanax around 6AM. Pt fell this AM trying to ambulate back from toilet to bed. He did NOT request assitance. Pt has been sleeping most of the day, but readily awakens and answers questions appropriately. Pt consumed most of his breakfast, but did NOT wake up for lunch. Objective Vitals Vital Signs Date Time Temp Pulse Resp B/P Pulse Ox O2 Delivery O2 Flow Rate FiO2 11/06/16 12:00 98.1 68 20 120/58 100 11/06/16 09:40 66 11/06/16 08:30 Nasal Cannula 3.00 11/06/16 08:01 96 Nasal Cannula 3.00 11/06/16 08:00 97.9 71 20 118/57 98 11/06/16 04:13 97.7 70 20 131/64 98 11/06/16 04:00 97.7 70 20 131/64 98 11/06/16 00:16 97.4 71 20 120/60 94 11/05/16 20:36 97.8 73 16 122/57 96 11/05/16 20:00 Nasal Cannula 3.00 11/05/16 20:00 73 11/05/16 16:06 97.6 79 21 130/60 99 11/05/16 15:40 98 Nasal Cannula 2.00 11/05/16 11/05/16 11/06/16 15:00 23:00 07:00 Intake Total 360 ml 240 ml Balance 360 ml 240 ml Intake Oral 360 ml 240 ml # Voids 3 1 # Bowel Movements 0 Result Diagram: 11/05/16 0514 11/05/16 0514 Imaging Last Impressions Head CT 11/04/16958 Signed Impressions: Service Date/Time: Friday, November 04, 2016 10:52 - CONCLUSION: 1. No acute abnormality seen. 2. Age-related atrophy. Andrew Dhaliwal MD Chest X-Ray 11/04/16958 Signed Impressions: Service Date/Time: Friday, November 04, 2016 09:57 - CONCLUSION: 1. Cardiomegaly. 2. Hazy density in the left chest likely representing some degree of effusion. Andrew Dhaliwal MD Chest CT 11/04/16 0000 Signed Impressions: Service Date/Time: Friday, November 04, 2016 14:25 - CONCLUSION: 1. Mild left pleural effusion with some accompanying atelectasis or consolidation at the posterior left lung base. 2. Minimal suspected atelectasis at the posterior right lower lobe. 3. Possible tiny gallstones. Andrew Dhaliwal MD Objective Remarks GENERAL: This is a well-nourished, well-developed patient, in no apparent distress. CARDIOVASCULAR: Regular rate and rhythm without murmurs, gallops, or rubs. RESPIRATORY: Clear to auscultation. Breath sounds equal bilaterally. No wheezes , rales, or rhonchi. GASTROINTESTINAL: Abdomen soft, non-tender, nondistended. Normal active bowel sounds MUSCULOSKELETAL: Extremities without clubbing, cyanosis, or edema. NEURO: Alert & Oriented x4 to person, place, time, situation. Moves all ext x4 A/P Problem List: (1) Acute worsening of stage 4 chronic kidney disease Status: Acute Plan: - Pt is 76 yr man recently admitted to [facility] for perineum abscess - then readmitted on 10/24 for hypercapneic respiratory failure, copd exacerbation - left lung pna, acute/ckd with volume overload. - He was sent to [facility] on 11/02 and then sent to [place] for sob/ams complaints. - acute on ckd 4..could be prerenal from diuretics - diuretics on hold - observe clinically - repeat BMP, mag in AM - PT - DVT prophylaxis (2) Altered mental status Status: Acute Plan: - CT brain (11/04/16) --> NO acute findings - likely multifactorial: dementia?, chronic hypercapnic respiratory failure, hypoglycemia, uremia - will address possible reversible causes - obtain free T4, folate, RPR --> WNL - TSH, B12 --> WNL - see below (3) COPD (chronic obstructive pulmonary disease) Status: Chronic Plan: - Comgmt with Pulm Medicine, Dr. Thomason - likely anxiety, chronic hypercapnia contributing to SOB - continue albuterol/atrovent - ABG (11/05/16) --> Arterial Blood Partial Pressure CO2 53 mmHg - start nightly BiPap (4) DM (diabetes mellitus) Status: Chronic Plan: - had hypoglycemia on admitssion of 63 - Pt was hypoglycemic this AM (11/05/16) at 45 and given juice - AM blood sugar (11/06/16) 68 (11/06/16) - levemir further decreased to 10 units BID, will adjust upwards if this proves necessary - continue SSI (5) CAD (coronary artery disease) Status: Chronic Plan: 4 stents per records cont home meds - echocardiogram --> pending - ASA, plavix, metoprolol, lipitor (6) HTN (hypertension) Status: Chronic Plan: - metoprolol, norvasc (7) Dementia Status: Chronic (8) Depression Status: Chronic Plan: still grieving loss of in June. very anxious and panicky also. - lexapro, xanax (9) Thrombocytopenia Status: Acute Plan: - observe Problem Qualifiers (1) Altered mental status: Qualified Code: R41.0 - Disorientation (2) DM (diabetes mellitus): Qualified Code: E11.8 - Type 2 diabetes mellitus with complication, with long- term current use of insulin (3) CAD (coronary artery disease): Qualified Code: I25.10 - Coronary artery disease involving [place] heart without angina pectoris, unspecified vessel or lesion type (4) HTN (hypertension): Qualified Code: I10 - Essential hypertension Louie Chapin DO Nov 06, 2016 15:29
--- NOTE | 2016-11-06 18:18 | HHI.PR ---
Subjective Remarks 76 YOWM With COPD,SULEIMAN, Dementia,CKD Sleeps a lot Did't use CPAP Good appetite no Distress Objective Vital Signs Vital Signs Date Time Temp Pulse Resp B/P Pulse Ox O2 Delivery O2 Flow Rate FiO2 11/06/16 16:03 98 Nasal Cannula 3.00 11/06/16 16:00 97.7 68 20 126/59 100 11/06/16 12:00 98.1 68 20 120/58 100 11/06/16 09:40 66 11/06/16 08:30 Nasal Cannula 3.00 11/06/16 08:01 96 Nasal Cannula 3.00 11/06/16 08:00 97.9 71 20 118/57 98 11/06/16 04:13 97.7 70 20 131/64 98 11/06/16 04:00 97.7 70 20 131/64 98 11/06/16 00:16 97.4 71 20 120/60 94 11/05/16 20:36 97.8 73 16 122/57 96 11/05/16 20:00 Nasal Cannula 3.00 11/05/16 20:00 73 I/O 11/05/16 11/05/16 11/05/16 11/06/16 11/06/16 11/06/16 07:00 15:00 23:00 07:00 15:00 23:00 Intake Total 480 ml 360 ml 240 ml 480 ml Balance 480 ml 360 ml 240 ml 480 ml Intake Oral 480 ml 360 ml 240 ml 480 ml # Voids 3 3 1 3 # Bowel Movements 0 2 Result Diagram: 11/05/1651311/05/16 0514 Objective Remarks GENERAL: WMWN WM, mild sob SKIN: Warm and dry. HEAD: Normocephalic. EYES: No scleral icterus. No injection or drainage. NECK: Supple, trachea midline. No JVD or lymphadenopathy. CARDIOVASCULAR: Regular rate and rhythm without murmurs, gallops, or rubs. RESPIRATORY: Breath sounds equal bilaterally. No accessory muscle use. GASTROINTESTINAL: Abdomen soft, non-tender, nondistended. MUSCULOSKELETAL: No cyanosis, or edema. BACK: Nontender without obvious deformity. No CVA tenderness. A/P Assessment and Plan COPD SULEIMAN Compensated resp acidosis CKD AF Dementia PLAN: Will Try CPAP at night Supplement 02 Aerosol nebs Monitor Matt Fowler MD Nov 06, 2016 18:18
[2016-11-06] MEDS: ATORVASTATIN 80 MG TAB PO SCH (20:05)
[2016-11-07] VITALS (10 sets, daily range): BP systolic 116–131; BP diastolic 57–65; PULSE 69–75; RESP 18–22; TEMP 97.3–99.2; O2SAT 94–100
[2016-11-07] MEDS: traMADol HCL 50 MG TAB PO PRN ×2 (00:35→08:34)
[2016-11-07] MEDS: INSULIN ASPART SUPPLEMENTAL SCALE SQ SCH ×4 (06:15→21:41)
[2016-11-07 07:42] LABS: MAGNESIUM 2.1 MG/DL (1.5-2.5); POTASSIUM 3.9 MEQ/L (3.5-5.1)
[2016-11-07] MEDS: METOPROLOL SUCCINATE 25 MG EXTENDED RELEASE TAB PO SCH (08:33)
[2016-11-07] MEDS: ESCITALOPRAM OXALATE 20 MG TAB PO SCH (08:33)
[2016-11-07] MEDS: amLODIPine BESYLATE 5 MG TAB PO SCH (08:33)
[2016-11-07] MEDS: ALPRAZolam 0.5 MG TAB PO PRN (08:33)
[2016-11-07] MEDS: LACTOBACILLUS ACIDOPHILUS TAB PO SCH ×2 (08:34→21:41)
[2016-11-07] MEDS: CLOPIDOGREL 75 MG TAB PO SCH (08:34)
[2016-11-07] MEDS: POTASSIUM CHLORIDE 10 MEQ CONTROLLED RELEASE TAB PO SCH (08:34)
[2016-11-07] MEDS: ASPIRIN 81 MG CHEW TAB CHEW SCH (08:34)
[2016-11-07] MEDS: INSULIN DETEMIR 100 UNITS/ML VIAL SQ SCH ×2 (08:34→21:40)
[2016-11-07] MEDS: RESP: ALBUTEROL 2.5 MG/IPRATROPIUM 0.5 MG NEB (SCH) NEB ×4 (08:43→19:29)
--- NOTE | 2016-11-07 12:21 | HHI.PR ---
Subjective Remarks Pt c/o continued bouts of anxiety. Less hiccups. Objective Vitals Vital Signs Date Time Temp Pulse Resp B/P Pulse Ox O2 Delivery O2 Flow Rate FiO2 11/07/16 09:06 69 11/07/16 08:43 98 Nasal Cannula 3.00 11/07/16 04:00 97.9 70 18 123/58 98 11/07/16 03:05 72 122/65 11/07/16 00:30 97.7 73 18 121/57 98 11/06/16 23:05 68 118/60 11/06/16 20:35 98 30 11/06/16 20:00 Nasal Cannula 3.00 11/06/16 20:00 68 11/06/16 20:00 97.2 73 18 120/58 98 11/06/16 16:03 98 Nasal Cannula 3.00 11/06/16 16:00 97.7 68 20 126/59 100 11/06/16 11/06/16 11/07/16 15:00 23:00 07:00 Intake Total 480 ml 240 ml 240 ml Output Total 100 ml Balance 480 ml 240 ml 140 ml Intake Oral 480 ml 240 ml 240 ml Output Urine Total 100 ml # Voids 3 1 # Bowel Movements 2 Result Diagram: 11/05/16 0514 11/07/16 0530 Imaging Last Impressions Head CT 11/04/16 0959 Signed Impressions: Service Date/Time: Friday, November 04, 2016 10:52 - CONCLUSION: 1. No acute abnormality seen. 2. Age-related atrophy. Andrew Dhaliwal MD Chest X-Ray 11/04/16 0959 Signed Impressions: Service Date/Time: Friday, November 04, 2016 09:57 - CONCLUSION: 1. Cardiomegaly. 2. Hazy density in the left chest likely representing some degree of effusion. Andrew Dhaliwal MD Chest CT 11/04/16 0000 Signed Impressions: Service Date/Time: Friday, November 04, 2016 14:25 - CONCLUSION: 1. Mild left pleural effusion with some accompanying atelectasis or consolidation at the posterior left lung base. 2. Minimal suspected atelectasis at the posterior right lower lobe. 3. Possible tiny gallstones. Andrew Dhaliwal MD Objective Remarks GENERAL: This is a well-nourished, well-developed patient, in no apparent distress. CARDIOVASCULAR: Regular rate and rhythm without murmurs, gallops, or rubs. RESPIRATORY: Clear to auscultation. Breath sounds equal bilaterally. No wheezes , rales, or rhonchi. GASTROINTESTINAL: Abdomen soft, non-tender, nondistended. Normal active bowel sounds MUSCULOSKELETAL: Extremities without clubbing, cyanosis, or edema. NEURO: Alert & Oriented x4 to person, place, time, situation. Moves all ext x4 A/P Problem List: (1) Acute worsening of stage 4 chronic kidney disease Status: Acute Plan: - Pt is 76 yr man recently admitted to [facility] for perineum abscess - then readmitted on 10/24 for hypercapneic respiratory failure, copd exacerbation - left lung pna, acute/ckd with volume overload. - He was sent to [facility] on 11/02 and then sent to [place] for sob/ams complaints. - acute on ckd 4..could be prerenal from diuretics - Pt's Creatinine was 1.59 (08/21/16) - Creatinine 3.00 (11/04/16), Cr 2.61 (11/08/16) - continue to hold diuretics - start IVFs with NS with 20mEq KCL @ 75 ml/hour for 2 liters - observe closely for volume overload - repeat BMP/Mg in AM - PT, will d/c to Acute Rehab, [facility], at the end of this hospitalization - DVT prophylaxis (2) Chronic combined systolic and diastolic CHF (congestive heart failure) Status: Acute Plan: - echocardiogram (10/14/16), findings reviewed EF - EF 30-35% - diastolic dysfunction noted, but NOT staged - global hypokinesis - lasix on hold since admission d/t LUCINDA, will need to restart once renal fxn has improved - CXR (11/18/16) --> improved, less interstitial infiltrate from prior CXR (3) Altered mental status Status: Acute Plan: - CT brain (11/04/16) --> NO acute findings - likely multifactorial: dementia?, chronic hypercapnic respiratory failure, hypoglycemia, uremia - obtain free T4, folate, RPR --> WNL - TSH, B12 --> WNL - pt has underlying dementia (4) COPD (chronic obstructive pulmonary disease) Status: Chronic Plan: - Comgmt with Pulm Medicine, Dr. Thomason - likely anxiety, chronic hypercapnia contributing to SOB - continue duonebs, decrease to q6h - ABG (11/05/16) --> pCO2 53 mmHg - ABG (11/08/16) --> pCO2 55 mmHg - nightly BiPap, pt having difficulty tolerating his BiPap (5) Chronic hypercapnic respiratory failure Status: Acute Plan: - see above (6) DM (diabetes mellitus) Status: Chronic Plan: - had hypoglycemia on admitssion of 63 - Pt was hypoglycemic this AM (11/05/16) at 45 and given juice - AM blood sugar (11/06/16) 68 (11/06/16) - levemir further decreased to 8 units BID, will adjust upwards if this proves necessary - continue SSI (7) CAD (coronary artery disease) Status: Chronic Plan: 4 stents per records cont home meds - echocardiogram --> pending - ASA, plavix, metoprolol, lipitor (8) HTN (hypertension) Status: Chronic Plan: - metoprolol, norvasc (9) Dementia Status: Chronic (10) Depression Status: Chronic Plan: still grieving loss of in June. very anxious and panicky also. - lexapro, xanax - Pt with sporadic difficulties with anxiety - request Psychiatry consultation - consider scheduled xanax or seroquel (11) Thrombocytopenia Status: Acute Plan: - observe Problem Qualifiers (1) Altered mental status: Qualified Code: R41.0 - Disorientation (2) DM (diabetes mellitus): Qualified Code: E11.8 - Type 2 diabetes mellitus with complication, with long- term current use of insulin (3) CAD (coronary artery disease): Qualified Code: I25.10 - Coronary artery disease involving [place] heart without angina pectoris, unspecified vessel or lesion type (4) HTN (hypertension): Qualified Code: I10 - Essential hypertension (5) Dementia: Qualified Code: F03.91 - Dementia with behavioral disturbance, unspecified dementia type (6) Depression: Louie Chapin DO Nov 07, 2016 12:21
[2016-11-07] MEDS ORDERED: PILL SPLITTER OTHER PRN (14:45)
--- NOTE | 2016-11-07 15:21 | MB ---
cc: ANDRAE TOMAS M.D. DATE OF CONSULTATION: 11/07/2016 HISTORY OF PRESENT ILLNESS This 76-year-old white male with multiple medical problems was admitted due to "altered mental status". Psychiatric consultation is requested by Dr. Chapin/Dr. Ramirez for evaluation and assistance in the management of "depression". Prior to evaluation I discussed the case with Dr. Chapin who provided some background information. Due to the patient's multiple medical problems which includes chronic kidney disease, coronary artery disease, diabetes mellitus, COPD, he has been hospitalized a few times and [facility]. His of 60 years had in June of last year and since then he has been increasingly depressed and anxious. He was started on Lexapro and Xanax recently. Per Dr. Chapin the plans are for him to be discharged to rehab sometime later this week. SIGNIFICANT AVAILABLE LAB REPORTS CBC with differential essentially unremarkable. Blood glucose on 11/05 was 45, rechecked today 112. BUN on 11/05 was quite elevated at 52, repeated today 39. Serum creatinine also on 11/05 was elevated at 2.73, repeated today 2.39. Serum ammonia level less than 10. T4 was normal. Folate levels normal. B12 Level report pending. PT 12.2 elevated. INR 1.1. Routine urinalysis shows proteinuria, rare bacteria, cath culture indicated. RPR nonreactive. CT scan of the head negative for any acute process, age appropriate atrophy. Chest x-ray shows cardiomegaly, he has a density in the left chest likely representing some degree of effusion. MEDICATIONS Current medications: 1. Levemir. 2. Norvasc. 3. Aspirin. 4. Plavix. 5. Lexapro 20 mg daily. 6. Toprol. 7. Potassium. 8. Lipitor. 9. Lactobacillus. 10. Xanax 0.5 mg q.8 hours p.r.n. for anxiety. 11. Tramadol 100 mg q.6 hours p.r.n. pain. At the time of this evaluation, Mr. Malik looks somewhat depressed but was overall pleasant and cooperative. He was able to smile somewhat later in the session while talking about the recent presidential elections. When asked what his understanding of the reason for this hospitalization he responded, "I have been having a lot of medical issues. I have been depressed. I have been feeling anxious". He mentioned he started feeling "depressed" the week before his in June of 2016. Apparently, she suffered from Alzheimer's and her health deteriorated gradually over the years. He mentioned he at times would cry, especially at night. He has been having difficulty falling asleep and would wake up in the middle of the night, his appetite had declined and had lost about 15 pounds in the past 2 months. In addition, he stated that his memory and concentration also has been declining gradually and he had lost interest in activities he had enjoyed doing previously "I enjoyed traveling but not anymore". He denied entertaining any suicidal thoughts but had entertained wish "I wish I had before she did, I miss her". He denied any active suicidal intent or plan "I can never do this, I have my sons, my grandkids and I even have two great grandkids". He denied any previous suicide attempts. On further direct questioning he did not give any history suggestive of bipolar affective disorder. He denied any alcohol or drug abuse. Further exploration revealed that he has three sons who live in the area and are very supportive of him. In addition he has several other friends. PAST PSYCHIATRIC HISTORY He denied any previous psychiatric intervention. PAST MEDICAL HISTORY 1. History of coronary artery disease status post four stents. 2. Atrial fibrillation. 3. Abdominal aortic aneurysm. 4. Chronic kidney disease. 5. COPD. 6. Congestive heart failure. 7. Benign prostatic hypertrophy. 8. Peripheral arterial disease. 9. Peripheral neuropathy. 10. Status post carcinoma of prostate. 11. Hyperlipidemia. 12. Hypertension. 13. Status post cataract surgery. 14. Status post inguinal hernia repair. 15. Status post pulmonary embolism. ALLERGIES He denied any drug allergies. FAMILY HISTORY According to him his parents about 8 years ago and they both 4 years ago. He had six brothers, four last year and two are living. Of the two sisters, one living. He denied any family history of psychiatric illness or substance abuse. PERSONAL AND SOCIAL HISTORY He grew up in [place] and served in the [employer]. After finishing high school he attended 3 years at [employer]. 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 He denied any alcohol or drug abuse. He denied any history of physical or sexual trauma. As mentioned he was to his only for 60 years and has three sons and a daughter. He has good relationship with all of them. He denied any history of involvement with the law. CLINICAL OBSERVATION AND MENTAL STATUS EXAMINATION At the time of this evaluation, Mr. Malik presented as a reasonably well-groomed, bearded white male who looked his stated age. He looked somewhat depressed but overall was pleasant and cooperative with this interviewer. His response to questions were relevant. No overt anger or hostility was noticed. No bizarre behavior or mannerisms were noticed. His speech was soft, coherent, appropriate. His affect was blunted, appropriate. Subjectively, he described his mood as "I have been feeling depressed, anxious". Thought processes did not reveal any looseness of association or flight of ideas. No bandar delusions, auditory or visual hallucinations were noticed or reported. He denied active suicidal or homicidal ideations or intent at this time. He denied any previous suicide attempts. Cognitive functions: He was alert, oriented to place and person, not to time. He gave the month as "maybe November or maybe October". Memory: Immediate, he could do 5 digits forward, 3 digits backward. Recent, he could recall only 1/3 objects after 5 minutes. Remote, he could recall presidents up to President Obama only. His attention and concentration was impaired. He could do serial sevens up to 86 only. His fund of knowledge was adequate, for example, he knew the capital of the [facility] as "[place]", capital [facility] "[place]". His judgment and insight was felt to be good. DIAGNOSTIC IMPRESSION Major depressive disorder, moderate, single episode. Coronary artery disease, atrial fibrillation, abdominal aortic aneurysm, COPD, congestive heart failure, peripheral arterial disease, peripheral neuropathy, status post carcinoma of the prostate, radiation seed, hyperlipidemia, hypertension, status post pulmonary embolism, diabetes mellitus. FORMULATION AND RECOMMENDATIONS Based on this evaluation and the background information available to me at this time, Mr. Malik is experiencing moderate degree of depression as manifested by persistent feelings of sadness, neurovegetative symptoms. His depression is compounded by several psychosocial stressors, i.e., the recent of his , of parents and siblings, multiple medical problems resulting in restrictive lifestyle. In addition, he is also exhibiting cognitive deficits which appears to multifactorial, i.e., multiple medical issues including chronic kidney disease, cardiovascular factors, etc. To alleviate his depression I concur with the plans of starting him on Lexapro. However, I noticed that he is also on tramadol which can cause serotoninergic syndrome in combination with Lexapro. As such, unless absolutely needed I would recommend reducing the dose significantly and have taken the liberty of making this change. To reduce his anxiety, he needs to continue on the Xanax but in a smaller dose and on a routine basis instead of p.r.n. I recommended grief counselor to him to which he was agreeable. In addition, he also needs to continue with outpatient psychiatric followup, in addition to individual psychotherapy and this can be arranged through the [facility]. For the sake of completeness, I have taken the liberty of ordering urine drug screen, calcium and B12 levels, ESR and LEXII. I discussed my recommendations and followup plans with Mr. Malik and he was supportive of it. Thank you Dr. Chapin/Dr. Ramirez for allowing me to participate in the care of Mr. Malik. MD KAREEN Griffith/PATRICIA /2:07 PM /2:36 PM
--- NOTE | 2016-11-07 16:27 | PD.CONS ---
Provisional Diagnosis Admission Date Nov 04, 2016 at 11:31 [place] I. Major depressive disorder, single episode, moderate, without psychosis, vs grieving, adjustment disorder with anxiety [place] II. Deferred [place] III. CAD, HTN, CHF, COPD,CKD [place] IV. Recent of his [place] V. 55 History of Present Illness Service Psychiatry Consult Requested By Primary Care Physician No Primary Care Physician HPI The patient is a 76 year-old man, , domiciled with his nephew in [place] , retired, with psychiatric history of depression and anxiety, questionable dementia, treated with Lexapro 20 mg prescribed by PCP, no previous psychiatric hospitalizations, no previous suicidal attempts, extensive medical history of CAD, HTN, CHF, COPD, diabetes, end-stage 4 CKD, hospitalized due to altered mental status. Consulted to psychiatry for symptoms of depression and anxiety. On psychiatric evaluation today patient was in his room and laid down, calm, cooperative and pleasant. Patient explained that he has been struggling with depression in the last [address] His [address] way last August after having a progressive deteriorating dementia. After this he has been increasingly depressed, unable to grasp a sense of reality, he described himself in a black hole "unable to get out", with persistent lack of motivation, lack of energy, and suicidal thoughts. However, patient says that he keeps his attachment to live, "I have 3 boys that I love", he also reports deep spirituality and moral beliefs "I don't believe in suicidality, I would be unable to hurt myself". Patient says that his wish is to get better and be happy "that is what she would want from me at this moment, I know it". During the evaluation patient is tearful at times, reflectful and thoughtful. He endorses anxiety and insomnia mostly related with his current medical conditions and the pain and distress caused by them. He explains that he is not dealing with continuous lack of air and thinking constantly in the possibility of dying with pain. Patient expresses his desire to try antidepressants, but he is hesitant to take benzodiazepines or any narcotics that could be potentially addictive. Patient is fully oriented 3, no attention deficit, no fluctuation of consciousness, no confusion, no gross cognitive impairment observed at this moment. No agitation or aggressive behaviors are present. Patient denies the use of drugs and alcohol. Review of Systems Constitutional: COMPLAINS OF: Fatigue, DENIES: Diaphoretic episodes, Fever, Weight gain, Weight loss, Chills, Dizziness, Change in appetite, Night Sweats Endocrine: DENIES: Heat/cold intolerance, Polydipsia, Polyuria, Polyphagia Eyes: DENIES: Blurred vision, Diplopia, Eye inflammation, Eye pain, Vision loss , Photosensitivity, Double Vision Ears, nose, mouth, throat: COMPLAINS OF: Tinnitus, Hearing loss, Vertigo, Nasal discharge, Oral lesions, Throat pain, Hoarseness, Ear Pain, Running Nose, Epistaxis, Sinus Pain, Toothache, Odynophagia Respiratory: COMPLAINS OF: Cough, Shortness of breath, DENIES: Apneas, Snoring , Wheezing, Hemoptysis, Sputum production Cardiovascular: DENIES: Chest pain, Palpitations, Syncope, Dyspnea on Exertion , PND, Lower Extremity Edema, Orthopnea, Claudication Gastrointestinal: DENIES: Abdominal pain, Black stools, Bloody stools, Constipation, Diarrhea, Nausea, Vomiting, Difficulty Swallowing, Anorexia Musculoskeletal: DENIES: Joint pain, Muscle aches, Stiffness, Joint Swelling, Back pain, Neck pain Integumentary: DENIES: Abnormal pigmentation, Nail changes, Pruritus, Rash Hematologic/lymphatic: DENIES: Bruising, Lymphadenopathy Neurologic: DENIES: Abnormal gait, Headache, Localized weakness, Paresthesias, Seizures, Speech Problems, Tremor, Poor Balance Psychiatric: COMPLAINS OF: Anxiety, Depression, DENIES: Confusion, Mood changes, Hallucinations, Agitation, Suicidal Ideation, Homicidal Ideation, Delusions Past Family Social History Coded Allergies: No Known Allergies (Unverified , 11/04/16) Reported Medications Insulin Aspart Inj (Novolog Inj)1,000 Unit/10 Ml Vial SQ DIRECTED #10 ML Ref 0 Sliding Scale as directed. 11/04/16 Amlodipine (Norvasc)5 Mg Tab5 Mg PO DAILY #30 TAB Ref 0 11/04/16 Rosuvastatin (Crestor)40 Mg Tab40 Mg PO HS #30 TAB Ref 0 11/04/16 Metoprolol Succinate ER 24 HR 25 Mg Tab25 Mg PO DAILY #30 TAB Ref 0 11/04/16 Escitalopram (Lexapro)20 Mg Tab20 Mg PO DAILY #30 TAB Ref 0 11/04/16 Clopidogrel (Plavix)75 Mg Tab75 Mg PO DAILY #30 TAB Ref 0 11/04/16 Aspirin (Aspirin 81 Low Dose)81 Mg Chew81 Mg CHEW DAILY #30 TAB 11/04/16 Insulin Glargine Inj (Lantus Inj)100 Unit/Ml Inj30 Units SQ daily@2000 11/04/16 Insulin Glargine Inj (Lantus Inj)100 Unit/Ml Inj60 Units SQ daily@0800 11/04/16 Potassium Chloride ER (Potassium Chloride CR)10 Meq Tab10 Meq PO DAILY 11/04/16 Alprazolam 0.5 Mg Tab0.5 Mg PO Q8H PRN (ANXIETY) Ref 0 11/04/16 Ipratropium-Albuterol Neb (Duoneb)0.5-2.5 Mg/3 Ml Neb1 Nebule INH Q4HR NEB # 120 NEBULE Ref 0 11/04/16 Tramadol 50 Mg Ahv283 Mg PO Q6H PRN (PAIN) Ref 0 11/04/16 Bumetanide (Bumex)2 Mg Tab2 Mg PO BID Ref 0 11/04/16 Famotidine 20 Mg Tab20 Mg PO BID #60 TAB Ref 0 11/04/16 Saccharomyces Boulardii (Florastor)250 Mg [id number] Mg PO BID Ref 0 11/04/16 Cefuroxime (Ceftin)500 Mg Lqg812 Mg PO BID Ref 0 11/04/16 Current Medications Medications (Trade) Dose Ordered Sig/Samantha Route Start Time Stop Time Status Last Admin (NS Flush) 2 ml UNSCH PRN IVF 11/04/16 10:00 11/05/16 20:32 (Xanax) 0.5 mg Q8H PRN PO 11/04/16 13:15 11/07/16 08:33 (Norvasc) 5 mg DAILY PO 11/05/16 09:00 11/07/16 08:33 (Aspirin Chew) 81 mg DAILY CHEW 11/05/16 09:00 11/07/16 08:34 (Plavix) 75 mg DAILY PO 11/05/16 09:00 11/07/16 08:34 (Lexapro) 20 mg DAILY PO 11/05/16 09:00 11/07/16 08:33 (Toprol Xl) 25 mg DAILY PO 11/05/16 09:00 11/07/16 08:33 (KCl) 10 meq DAILY PO 11/05/16 09:00 11/07/16 08:34 (Lipitor) 80 mg HS PO 11/04/16 21:00 11/06/16 20:05 (Lactinex) 1 tab BID PO 11/04/16 21:00 11/07/16 08:34 (Levemir Inj) 8 units Q12HR SQ 11/07/16 21:00 (Ultram) 25 mg Q12H PRN PO 11/07/16 14:30 (Pill Splitter) 1 ea UNSCH PRN OTHER 11/07/16 14:45 (Remeron) 15 mg HS PO 11/07/16 21:00 UNV Family History He denies Social History Patient was born and raised in [place], he has been living in [place] for 33 years, lives in [place] with his nephew, he is , his recently in August 2016, 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 Physical Exam Vital Signs Vital Signs Date Time Temp Pulse Resp B/P Pulse Ox O2 Delivery O2 Flow Rate FiO2 11/07/16 15:40 99 Nasal Cannula 3.00 11/07/16 09:06 69 11/07/16 04:00 97.9 18 123/58 11/06/16 20:35 30 I/O 11/06/16 11/06/16 11/07/16 08:00 16:00 00:00 Intake Total 480 ml 240 ml Balance 480 ml 240 ml Mental Status Examination Appearance Overweight man, age appearing, [facility], good hygiene, calm and cooperative Speech: Slow Orientation: x3 Memory: Unremarkable Thought Process: Logical Thought Content: Unremarkable Hallucination Type: None Suicidal Ideation: No Previous Suicide Attempts: No Homicidal Ideation: No Previous Homicide Attempts: No Judgement: WNL Affect: Sad Mood: Sad Motor Activity: Normal gait Assessment & Plan Problem List: (1) Adjustment disorder with anxiety ICD Code: F43.22 (2) Depression Assessment & Plan: The patient is a 76 year-old man, , domiciled with his nephew in [place], retired, with psychiatric history of depression and anxiety , questionable dementia, treated with Lexapro 20 mg prescribed by PCP, no previous psychiatric hospitalizations, no previous suicidal attempts, extensive medical history of CAD, HTN, CHF, COPD, diabetes, end-stage 4 CKD, hospitalized due to altered mental status. Consulted to psychiatry for symptoms of depression and anxiety. On psychiatric evaluation today patient presents symptomatology is consistent with moderate depression secondary to his current medical conditions and also to the recent of his . He also reports episodic anxiety and insomnia that he relates directly with his underlying medical conditions. He denies suicidal or homicidal ideation, he denies visual and auditory hallucinations. His depression symptoms consistent on frequent crying spells, suicidal thoughts, lack of energy, moderate anhedonia, lack of appetite could be also related to persisting or complicating grieving. He does not meet criteria for involuntary psychiatric admission at this moment. I recommended voluntary psychiatric admission to the patient, but he declined stating that he would try medications at home and will give himself a chance to find his own coping skills. Can continue escitalopram 20 mg daily for depression, will add Remeron 15 mg to help with the depression and insomnia. Can continue Xanax 0.5 mg when necessary anxiety, but he is carefully if patient has SOB. Extensive support, psychoeducation and motivation provided. Consult appreciated. ICD Code: F32.9 Assessment & Plan Estimated LOS: days Problem Qualifiers (1) Depression: Cristopher Dobbs MD Nov 07, 2016 16:27
[2016-11-07 20:12] LABS: AMPHETAMINE, URINE NEG (NEG); BARBITURATES, URINE NEG (NEG); COCAINE, URINE NEG (NEG)
--- NOTE | 2016-11-07 21:33 | HHI.PR ---
Subjective Remarks 76 YOWM With COPD,SULEIMAN, Dementia,CKD Sleeps a lot Did't use CPAP Good appetite no Distress Used CPAP few hrs, feels mask is tight Objective Vital Signs Vital Signs Date Time Temp Pulse Resp B/P Pulse Ox O2 Delivery O2 Flow Rate FiO2 11/07/16 16:00 99.2 75 22 122/58 100 11/07/16 15:40 99 Nasal Cannula 3.00 11/07/16 12:00 97.3 69 22 116/57 99 11/07/16 09:06 69 11/07/16 08:45 Nasal Cannula 3.00 11/07/16 08:43 98 Nasal Cannula 3.00 11/07/16 08:00 97.8 72 22 131/63 94 11/07/16 04:00 97.9 70 18 123/58 98 11/07/16 03:05 72 122/65 11/07/16 00:30 97.7 73 18 121/57 98 11/06/16 23:05 68 118/60 I/O 11/06/16 11/06/16 11/06/16 11/07/16 11/07/16 11/07/16 07:00 15:00 23:00 07:00 15:00 23:00 Intake Total 480 ml 240 ml 240 ml 480 ml Output Total 100 ml 100 ml Balance 480 ml 240 ml 140 ml 380 ml Intake Oral 480 ml 240 ml 240 ml 480 ml Output Urine Total 100 ml 100 ml # Voids 3 1 # Bowel Movements 2 Result Diagram: 11/05/16 0514 11/07/16 0530 Objective Remarks GENERAL: WMWN WM, mild sob SKIN: Warm and dry. HEAD: Normocephalic. EYES: No scleral icterus. No injection or drainage. NECK: Supple, trachea midline. No JVD or lymphadenopathy. CARDIOVASCULAR: Regular rate and rhythm without murmurs, gallops, or rubs. RESPIRATORY: Breath sounds equal bilaterally. No accessory muscle use. GASTROINTESTINAL: Abdomen soft, non-tender, nondistended. MUSCULOSKELETAL: No cyanosis, or edema. BACK: Nontender without obvious deformity. No CVA tenderness. A/P Assessment and Plan COPD SULEIMAN Compensated resp acidosis CKD AF Dementia PLAN: Will Try CPAP at night Supplement 02 Aerosol nebs Monitor Matt Fowler MD Nov 07, 2016 21:33
[2016-11-07] MEDS: MIRTAZAPINE 15 MG TAB PO SCH (21:41)
[2016-11-07] MEDS: ATORVASTATIN 80 MG TAB PO SCH (21:41)
[2016-11-08] VITALS (11 sets, daily range): BP systolic 111–131; BP diastolic 53–65; PULSE 74–106; RESP 18–23; TEMP 97.6–98.5; O2SAT 94–98
[2016-11-08] MEDS: INSULIN ASPART SUPPLEMENTAL SCALE SQ SCH ×4 (06:00→20:53)
[2016-11-08 08:19] LABS: AUTOMATED NEUTROPHIL # 7.3 TH/MM3 (1.8-7.7); BASOPHIL % 0.4 % (0.0-2.0); EOSINOPHIL # 0.3 TH/MM3 (0-0.4); EOSINOPHIL % 3.4 % (0.0-4.0); HEMATOCRIT 27.8 % (39.0-51.0); HEMO FLAGS DIFF FINAL; LYMPH % 6.9 % (9.0-44.0); LYMPHOCYTE # 0.6 TH/MM3 (1.0-4.8); MEAN CELL VOLUME 89.7 FL (80.0-100.0); MEAN CORPUSCULAR HEMOGLOBIN 30.8 PG (27.0-34.0); MEAN CORPUSCULAR HGB CONC 34.4 % (32.0-36.0); NEUT % 79.3 % (16.0-70.0); PLATELET COUNT 105 TH/MM3 (150-450); RED CELL DISTRIBUTION WIDTH 14.5 % (11.6-17.2); WHITE BLOOD COUNT 9.2 TH/MM3 (4.0-11.0)
[2016-11-08 08:41] LABS: MAGNESIUM 2.3 MG/DL (1.5-2.5); POTASSIUM 4.3 MEQ/L (3.5-5.1)
[2016-11-08] MEDS: RESP: ALBUTEROL 2.5 MG/IPRATROPIUM 0.5 MG NEB (SCH) NEB ×3 (08:47→15:52)
--- NOTE | 2016-11-08 08:53 | RADRPT ---
EXAM DATE/TIME: 11/08/2016 08:05 [facility] COMPARISON: CHEST SINGLE AP, November 04, 2016, 9:57. INDICATIONS : Short of breath. MEDICAL HISTORY : Hypertension. Diabetes mellitus type II. Cardiovascular disease. Prostate cancer about 10 years a go. SURGICAL HISTORY : None. ENCOUNTER: Subsequent ACUITY: 3 days PAIN SCORE: 2/10 LOCATION: Bilateral chest FINDINGS: Heart is enlarged. Minimal blunting of the right and left costophrenic sulci are noted. Pulmonary v ascularity is normal. CONCLUSION: Improvement of less interstitial edema. Trace effusions remain. Hugo Sparks MD FACR on November 08, 2016 at 8:44 Board Certified Radiologist. This report was verified electronically.
[2016-11-08] MEDS: amLODIPine BESYLATE 5 MG TAB PO SCH (08:54)
[2016-11-08] MEDS: METOPROLOL SUCCINATE 25 MG EXTENDED RELEASE TAB PO SCH (08:54)
[2016-11-08] MEDS: LACTOBACILLUS ACIDOPHILUS TAB PO SCH ×2 (08:55→20:31)
[2016-11-08] MEDS: ASPIRIN 81 MG CHEW TAB CHEW SCH (08:55)
[2016-11-08] MEDS: CLOPIDOGREL 75 MG TAB PO SCH (08:55)
[2016-11-08] MEDS: POTASSIUM CHLORIDE 10 MEQ CONTROLLED RELEASE TAB PO SCH (08:55)
[2016-11-08] MEDS: ESCITALOPRAM OXALATE 20 MG TAB PO SCH (08:55)
[2016-11-08] MEDS: INSULIN DETEMIR 100 UNITS/ML VIAL SQ SCH ×2 (08:56→20:53)
[2016-11-08 09:00] LABS: BLOOD GAS BASE EXCESS 7.9 mmol/L (-2-2); BLOOD GAS CARBOXYHEMOGLOBIN 2.1 % (0-4); BLOOD GAS HCO3 33 mmol/L (22-26); BLOOD GAS METHEMOGLOBIN 0.8 % (0-2); BLOOD GAS O2 HGB SATURATION 92 % (90-100); BLOOD GAS OXYGEN CONTENT 12.6 Vol % (12.0-20.0); BLOOD GAS PCO2 55 mmHg (38-42); BLOOD GAS PO2 71 mmHg (61-120); BLOOD GAS TOTAL HGB 9.7 G/DL (12.0-16.0); CRITICAL VALUE YES; DRAW SITE RT RADIAL; LITER FLOW 2 L/M; NUMBER OF ARTERIAL PUNCTURES 1; OXYGEN DEVICE NASAL CANNULA; STAT NO; TEMP CORR TO 98.6
[2016-11-08] MEDS: traMADol HCL 50 MG TAB PO PRN (10:18)
--- NOTE | 2016-11-08 11:51 | HHI.PR ---
Subjective Remarks No new complaints. Objective Vitals Vital Signs Date Time Temp Pulse Resp B/P Pulse Ox O2 Delivery O2 Flow Rate FiO2 11/08/16 10:16 104 20 127/61 95 11/08/16 09:51 98 11/08/16 08:47 94 Nasal Cannula 2.00 11/08/16 08:00 97.8 106 23 117/65 94 11/08/16 08:00 Nasal Cannula 3.00 11/08/16 04:00 98.5 77 18 119/59 97 11/08/16 00:00 97.8 74 18 131/65 98 11/07/16 20:00 75 11/07/16 20:00 97.4 72 18 129/60 97 11/07/16 16:00 99.2 75 22 122/58 100 11/07/16 15:40 99 Nasal Cannula 3.00 11/07/16 12:00 97.3 69 22 116/57 99 11/07/16 11/07/16 11/08/16 15:00 23:00 07:00 Intake Total 480 ml 240 ml 100 ml Output Total 100 ml 400 ml Balance 380 ml 240 ml -300 ml Intake Oral 480 ml 240 ml 100 ml Output Urine Total 100 ml 400 ml # Voids 0 # Bowel Movements 0 1 Result Diagram: 11/08/16 0724 11/08/16 0724 Imaging Last Impressions Head CT 11/04/16 0959 Signed Impressions: Service Date/Time: Friday, November 04, 2016 10:52 - CONCLUSION: 1. No acute abnormality seen. 2. Age-related atrophy. Andrew Dhaliwal MD Chest X-Ray 11/04/16 0959 Signed Impressions: Service Date/Time: Friday, November 04, 2016 09:57 - CONCLUSION: 1. Cardiomegaly. 2. Hazy density in the left chest likely representing some degree of effusion. Andrew Dhaliwal MD Chest CT 11/04/16 0000 Signed Impressions: Service Date/Time: Friday, November 04, 2016 14:25 - CONCLUSION: 1. Mild left pleural effusion with some accompanying atelectasis or consolidation at the posterior left lung base. 2. Minimal suspected atelectasis at the posterior right lower lobe. 3. Possible tiny gallstones. Andrew Dhaliwal MD Objective Remarks GENERAL: This is a well-nourished, well-developed patient, in no apparent distress. CARDIOVASCULAR: Regular rate and rhythm without murmurs, gallops, or rubs. RESPIRATORY: Clear to auscultation. Breath sounds equal bilaterally. No wheezes , rales, or rhonchi. GASTROINTESTINAL: Abdomen soft, non-tender, nondistended. Normal active bowel sounds MUSCULOSKELETAL: Extremities without clubbing, cyanosis, or edema. NEURO: Alert & Oriented x3, but confused at times. Moves all ext x4 A/P Problem List: (1) Acute worsening of stage 4 chronic kidney disease Status: Acute Plan: - Pt is 76 yr man [facility] - then readmitted on 10/24 for hypercapneic respiratory failure, copd exacerbation - left lung pna, acute/ckd with volume overload. - He was sent to [facility] on 11/02 and then sent to [place] for sob/ams complaints. - acute on ckd 4..could be prerenal from diuretics - Pt's Creatinine was 1.59 (08/21/16) - Creatinine 3.00 (11/04/16), Cr 2.61 (11/08/16) - continue to hold diuretics - start IVFs with NS with 20mEq KCL @ 75 ml/hour for 2 liters - observe closely for volume overload - repeat BMP/Mg in AM - PT, will d/[facility], at the end of this hospitalization - DVT prophylaxis (2) Chronic combined systolic and diastolic CHF (congestive heart failure) Status: Acute Plan: - echocardiogram (10/14/16), findings reviewed EF - EF 30-35% - diastolic dysfunction noted, but NOT staged - global hypokinesis - lasix on hold since admission d/t LUCINDA, will need to restart once renal fxn has improved - CXR (11/18/16) --> improved, less interstitial infiltrate from prior CXR (3) Altered mental status Status: Acute Plan: - CT brain (11/04/16) --> NO acute findings - likely multifactorial: dementia?, chronic hypercapnic respiratory failure, hypoglycemia, uremia - obtain free T4, folate, RPR --> WNL - TSH, B12 --> WNL - pt has underlying dementia (4) COPD (chronic obstructive pulmonary disease) Status: Chronic Plan: - Comgmt with Pulm Medicine, Dr. Thomason - likely anxiety, chronic hypercapnia contributing to SOB - continue duonebs, decrease to q6h - ABG (11/05/16) --> pCO2 53 mmHg - ABG (11/08/16) --> pCO2 55 mmHg - change BiPaP to CPAP, pt previously using home CPAP and having difficulty tolerating BiPaP d/t high pressure of mask (5) Chronic hypercapnic respiratory failure Status: Acute Plan: - see above (6) DM (diabetes mellitus) Status: Chronic Plan: - had hypoglycemia on admitssion of 63 - Pt was hypoglycemic this AM (11/05/16) at 45 and given juice - AM blood sugar (11/06/16) 68 (11/06/16) - levemir further decreased to 8 units BID, will adjust upwards if this proves necessary - continue SSI (7) CAD (coronary artery disease) Status: Chronic Plan: 4 stents per records cont home meds - echocardiogram --> pending - ASA, plavix, metoprolol, lipitor (8) HTN (hypertension) Status: Chronic Plan: - metoprolol, norvasc (9) Dementia Status: Chronic (10) Depression Status: Chronic Plan: still grieving loss of in June. very anxious and panicky also. - lexapro, xanax - Pt with sporadic difficulties with anxiety - request Psychiatry consultation - consider scheduled xanax or seroquel (11) Thrombocytopenia Status: Acute Plan: - observe Problem Qualifiers (1) Altered mental status: Qualified Code: R41.0 - Disorientation (2) DM (diabetes mellitus): Qualified Code: E11.8 - Type 2 diabetes mellitus with complication, with long- term current use of insulin (3) CAD (coronary artery disease): Qualified Code: I25.10 - Coronary artery disease involving [place] heart without angina pectoris, unspecified vessel or lesion type (4) HTN (hypertension): Qualified Code: I10 - Essential hypertension (5) Dementia: Qualified Code: F03.91 - Dementia with behavioral disturbance, unspecified dementia type (6) Depression: Louie Chapin DO Nov 08, 2016 11:51
[2016-11-08] MEDS: 1/2 NS + KCL 20 MEQ INJ 1,000 ML IV SCH (11:56)
--- NOTE | 2016-11-08 16:56 | HHI.PR ---
Subjective Remarks 76 YOWM With COPD,SULEMIAN, Dementia,CKD Sleeps a lot Good appetite no Distress Uses his own CPAP Objective Vital Signs Vital Signs Date Time Temp Pulse Resp B/P Pulse Ox O2 Delivery O2 Flow Rate FiO2 11/08/16 16:13 97.6 86 22 111/57 98 11/08/16 12:00 97.9 88 18 119/55 96 11/08/16 10:16 104 20 127/61 95 11/08/16 09:51 98 11/08/16 08:47 94 Nasal Cannula 2.00 11/08/16 08:00 97.8 106 23 117/65 94 11/08/16 08:00 Nasal Cannula 3.00 11/08/16 04:00 98.5 77 18 119/59 97 11/08/16 00:00 97.8 74 18 131/65 98 11/07/16 20:00 75 11/07/16 20:00 97.4 72 18 129/60 97 I/O 11/07/16 11/07/16 11/07/16 11/08/16 11/08/16 11/08/16 07:00 15:00 23:00 07:00 15:00 23:00 Intake Total 240 ml 480 ml 240 ml 100 ml 480 ml Output Total 100 ml 100 ml 400 ml 600 ml Balance 140 ml 380 ml 240 ml -300 ml -120 ml Intake Oral 240 ml 480 ml 240 ml 100 ml 480 ml Output Urine Total 100 ml 100 ml 400 ml 600 ml # Voids 0 # Bowel Movements 0 1 Result Diagram: 11/08/16 0724 11/08/16 0724 Objective Remarks GENERAL: WMWN WM, mild sob SKIN: Warm and dry. HEAD: Normocephalic. EYES: No scleral icterus. No injection or drainage. NECK: Supple, trachea midline. No JVD or lymphadenopathy. CARDIOVASCULAR: Regular rate and rhythm without murmurs, gallops, or rubs. RESPIRATORY: Breath sounds equal bilaterally. No accessory muscle use. GASTROINTESTINAL: Abdomen soft, non-tender, nondistended. MUSCULOSKELETAL: No cyanosis, or edema. BACK: Nontender without obvious deformity. No CVA tenderness. A/P Assessment and Plan COPD SULEIMAN Compensated resp acidosis CKD AF Dementia PLAN: Pt will use his own CPAP Supplement 02 Aerosol nebs Monitor Matt Fowler MD Nov 08, 2016 16:56
[2016-11-08] MEDS ORDERED: SOD PHOSPHATE/SOD BIPHOSPHATE (ADULT) ENEMA 133ML PR PRN (20:00)
[2016-11-08] MEDS: ALPRAZolam 0.5 MG TAB PO PRN (20:31)
[2016-11-08] MEDS: DOCUSATE SODIUM 100 MG CAP PO SCH (20:31)
[2016-11-08] MEDS: ATORVASTATIN 80 MG TAB PO SCH (20:31)
[2016-11-08] MEDS: MIRTAZAPINE 15 MG TAB PO SCH (20:31)
[2016-11-09] VITALS (9 sets, daily range): BP systolic 110–140; BP diastolic 55–73; PULSE 71–82; RESP 18–20; TEMP 97.3–99.1; O2SAT 91–99
[2016-11-09] MEDS: 1/2 NS + KCL 20 MEQ INJ 1,000 ML IV SCH (00:35)
[2016-11-09] MEDS: INSULIN ASPART SUPPLEMENTAL SCALE SQ SCH ×4 (06:07→21:00)
[2016-11-09] MEDS: amLODIPine BESYLATE 5 MG TAB PO SCH (08:13)
[2016-11-09] MEDS: LACTOBACILLUS ACIDOPHILUS TAB PO SCH ×2 (08:13→21:36)
[2016-11-09] MEDS: POTASSIUM CHLORIDE 10 MEQ CONTROLLED RELEASE TAB PO SCH (08:13)
[2016-11-09] MEDS: ESCITALOPRAM OXALATE 20 MG TAB PO SCH (08:13)
[2016-11-09] MEDS: CLOPIDOGREL 75 MG TAB PO SCH (08:13)
[2016-11-09] MEDS: METOPROLOL SUCCINATE 25 MG EXTENDED RELEASE TAB PO SCH (08:13)
[2016-11-09] MEDS: DOCUSATE SODIUM 100 MG CAP PO SCH ×2 (08:13→21:35)
[2016-11-09] MEDS: ASPIRIN 81 MG CHEW TAB CHEW SCH (08:13)
[2016-11-09] MEDS: INSULIN DETEMIR 100 UNITS/ML VIAL SQ SCH ×2 (08:14→21:00)
[2016-11-09] MEDS: ALPRAZolam 0.5 MG TAB PO PRN ×2 (13:25→21:35)
--- NOTE | 2016-11-09 15:28 | HHI.PR ---
Subjective Remarks No new complaints. Objective Vitals Vital Signs Date Time Temp Pulse Resp B/P Pulse Ox O2 Delivery O2 Flow Rate FiO2 11/09/16 12:00 99.1 82 20 140/66 94 11/09/16 09:30 93 Nasal Cannula 2.00 11/09/16 08:16 Nasal Cannula 2.00 11/09/16 08:00 97.3 74 20 138/73 93 11/09/16 07:47 76 11/09/16 04:00 97.3 75 18 137/62 97 11/09/16 00:00 97.7 73 18 127/59 96 11/08/16 22:17 97 Nasal Cannula 2.00 11/08/16 20:56 Nasal Cannula 3.00 11/08/16 20:18 86 11/08/16 20:00 98.1 92 18 111/53 98 11/08/16 16:13 97.6 86 22 111/57 98 11/08/16 11/08/16 11/09/16 15:00 23:00 07:00 Intake Total 480 ml 840 ml 676 ml Output Total 600 ml Balance -120 ml 840 ml 676 ml Intake Oral 480 ml 240 ml 100 ml IV Total 600 ml 576 ml Output Urine Total 600 ml # Voids 1 1 # Bowel Movements 0 0 Result Diagram: 11/08/16 0724 11/08/16 0724 Imaging Last Impressions Head CT 11/04/16 0959 Signed Impressions: Service Date/Time: Friday, November 04, 2016 10:52 - CONCLUSION: 1. No acute abnormality seen. 2. Age-related atrophy. Andrew Dhaliwal MD Chest X-Ray 11/04/16 0959 Signed Impressions: Service Date/Time: Friday, November 04, 2016 09:57 - CONCLUSION: 1. Cardiomegaly. 2. Hazy density in the left chest likely representing some degree of effusion. Andrew Dhaliwal MD Chest CT 11/04/16 0000 Signed Impressions: Service Date/Time: Friday, November 04, 2016 14:25 - CONCLUSION: 1. Mild left pleural effusion with some accompanying atelectasis or consolidation at the posterior left lung base. 2. Minimal suspected atelectasis at the posterior right lower lobe. 3. Possible tiny gallstones. Andrew Dhaliwal MD Objective Remarks GENERAL: This is a well-nourished, well-developed patient, in no apparent distress. CARDIOVASCULAR: Regular rate and rhythm without murmurs, gallops, or rubs. RESPIRATORY: Clear to auscultation. Breath sounds equal bilaterally. No wheezes , rales, or rhonchi. GASTROINTESTINAL: Abdomen soft, non-tender, nondistended. Normal active bowel sounds MUSCULOSKELETAL: Extremities without clubbing, cyanosis, or edema. NEURO: Alert & Oriented x3, but confused at times. Moves all ext x4 A/P Problem List: (1) Acute worsening of stage 4 chronic kidney disease Status: Acute Plan: - Pt is 76 yr man recently admitted to [facility] for perineum abscess - then readmitted on 10/24 for hypercapneic respiratory failure, copd exacerbation - left lung pna, acute/ckd with volume overload. - He was sent to [facility] on 11/02 and then sent to [place] for sob/ams complaints. - acute on ckd 4..could be prerenal from diuretics - Pt's Creatinine was 1.59 (08/21/16) - Creatinine 3.00 (11/04/16), Cr 2.61 (11/08/16) - continue to hold diuretics - IVFs with NS with 20mEq KCL @ 75 ml/hour for 2 liters - observe closely for volume overload - repeat BMP/Mg in AM - PT, will d/c to Acute Rehab, [facility], at the end of this hospitalization - DVT prophylaxis 11/09/16 - await repeat BMP 11/09 - repeat BMP 11/10 - continue hydration - repeat CXR in AM - [facility] once renal fxn is improved (2) Chronic combined systolic and diastolic CHF (congestive heart failure) Status: Acute Plan: - echocardiogram (10/14/16), findings reviewed EF - EF 30-35% - diastolic dysfunction noted, but NOT staged - global hypokinesis - lasix on hold since admission d/t LUCINDA, will need to restart once renal fxn has improved - CXR (11/18/16) --> improved, less interstitial infiltrate from prior CXR (3) Altered mental status Status: Acute Plan: - CT brain (11/04/16) --> NO acute findings - likely multifactorial: dementia?, chronic hypercapnic respiratory failure, hypoglycemia, uremia - obtain free T4, folate, RPR --> WNL - TSH, B12 --> WNL - pt has underlying dementia (4) COPD (chronic obstructive pulmonary disease) Status: Chronic Plan: - Comgmt with Pulm Medicine, Dr. Thomason - likely anxiety, chronic hypercapnia contributing to SOB - continue duonebs, decrease to q6h - ABG (11/05/16) --> pCO2 53 mmHg - ABG (11/08/16) --> pCO2 55 mmHg - change BiPaP to CPAP, pt previously using home CPAP and having difficulty tolerating BiPaP d/t high pressure of mask (5) Chronic hypercapnic respiratory failure Status: Acute Plan: - see above (6) DM (diabetes mellitus) Status: Chronic Plan: - had hypoglycemia on admitssion of 63 - Pt was hypoglycemic this AM (11/05/16) at 45 and given juice - AM blood sugar (11/06/16) 68 (11/06/16) - levemir further decreased to 8 units BID, will adjust upwards if this proves necessary - continue SSI (7) CAD (coronary artery disease) Status: Chronic Plan: 4 stents per records cont home meds - echocardiogram --> pending - ASA, plavix, metoprolol, lipitor (8) HTN (hypertension) Status: Chronic Plan: - metoprolol, norvasc (9) Dementia Status: Chronic (10) Depression Status: Chronic Plan: still grieving loss of in June. very anxious and panicky also. - lexapro, xanax - Pt with sporadic difficulties with anxiety - request Psychiatry consultation - consider scheduled xanax or seroquel (11) Thrombocytopenia Status: Acute Plan: - observe Problem Qualifiers (1) Altered mental status: Qualified Code: R41.0 - Delirium (2) DM (diabetes mellitus): Qualified Code: E11.8 - Type 2 diabetes mellitus with complication, with long- term current use of insulin (3) CAD (coronary artery disease): Qualified Code: I25.10 - Coronary artery disease involving [place] heart without angina pectoris, unspecified vessel or lesion type (4) HTN (hypertension): Qualified Code: I10 - Essential hypertension (5) Dementia: Qualified Code: F03.91 - Dementia with behavioral disturbance, unspecified dementia type (6) Depression: Louie Chapin DO Nov 09, 2016 15:28
[2016-11-09 17:22] LABS: BICARBONATE 33.1 MEQ/L (21.0-32.0); POTASSIUM 4.7 MEQ/L (3.5-5.1)
--- NOTE | 2016-11-09 20:37 | HHI.PR ---
Subjective Remarks 76 YOWM With COPD,SULEIMAN, Dementia,CKD Sleeps a lot Good appetite no Distress Uses his own CPAP Feels tired Objective Vital Signs Vital Signs Date Time Temp Pulse Resp B/P Pulse Ox O2 Delivery O2 Flow Rate FiO2 11/09/16 19:41 Nasal Cannula 2.00 11/09/16 17:48 94 Nasal Cannula 2.00 11/09/16 16:00 98.9 73 20 114/55 91 11/09/16 12:00 99.1 82 20 140/66 94 11/09/16 09:30 93 Nasal Cannula 2.00 11/09/16 08:16 Nasal Cannula 2.00 11/09/16 08:00 97.3 74 20 138/73 93 11/09/16 07:47 76 11/09/16 04:00 97.3 75 18 137/62 97 11/09/16 00:00 97.7 73 18 127/59 96 11/08/16 22:17 97 Nasal Cannula 2.00 11/08/16 20:56 Nasal Cannula 3.00 I/O 11/08/16 11/08/16 11/08/16 11/09/16 11/09/16 11/09/16 07:00 15:00 23:00 07:00 15:00 23:00 Intake Total 100 ml 480 ml 840 ml 676 ml 1222 ml Output Total 400 ml 600 ml Balance -300 ml -120 ml 840 ml 676 ml 1222 ml Intake Oral 100 ml 480 ml 240 ml 100 ml 600 ml IV Total 600 ml 576 ml 622 ml Output Urine Total 400 ml 600 ml # Voids 1 1 2 # Bowel Movements 1 0 0 1 Result Diagram: 11/08/16 0724 11/09/16 1640 Objective Remarks GENERAL: WMWN WM, mild sob SKIN: Warm and dry. HEAD: Normocephalic. EYES: No scleral icterus. No injection or drainage. NECK: Supple, trachea midline. No JVD or lymphadenopathy. CARDIOVASCULAR: Regular rate and rhythm without murmurs, gallops, or rubs. RESPIRATORY: Breath sounds equal bilaterally. No accessory muscle use. GASTROINTESTINAL: Abdomen soft, non-tender, nondistended. MUSCULOSKELETAL: No cyanosis, or edema. BACK: Nontender without obvious deformity. No CVA tenderness. A/P Assessment and Plan COPD SULEIMAN Compensated resp acidosis CKD AF Dementia PLAN: Pt will use his own CPAP Supplement 02 Aerosol nebs Monitor BS Encourage Matt Amezcua MD Nov 09, 2016 20:37
[2016-11-09] MEDS: MIRTAZAPINE 15 MG TAB PO SCH (21:35)
[2016-11-09] MEDS: ATORVASTATIN 80 MG TAB PO SCH (21:36)
[2016-11-10] VITALS (8 sets, daily range): BP systolic 107–144; BP diastolic 56–79; PULSE 63–96; RESP 18–22; TEMP 97.6–98.5; O2SAT 93–98
[2016-11-10] MEDS: ALPRAZolam 0.5 MG TAB PO PRN (05:36)
[2016-11-10] MEDS: INSULIN ASPART SUPPLEMENTAL SCALE SQ SCH ×4 (06:07→21:20)
[2016-11-10 07:21] LABS: BICARBONATE 33.6 MEQ/L (21.0-32.0); MAGNESIUM 2.2 MG/DL (1.5-2.5); POTASSIUM 4.3 MEQ/L (3.5-5.1)
[2016-11-10] MEDS: POTASSIUM CHLORIDE 10 MEQ CONTROLLED RELEASE TAB PO SCH (08:24)
[2016-11-10] MEDS: INSULIN DETEMIR 100 UNITS/ML VIAL SQ SCH ×2 (08:24→21:20)
[2016-11-10] MEDS: DOCUSATE SODIUM 100 MG CAP PO SCH ×2 (08:24→21:20)
[2016-11-10] MEDS: METOPROLOL SUCCINATE 25 MG EXTENDED RELEASE TAB PO SCH (08:25)
[2016-11-10] MEDS: ASPIRIN 81 MG CHEW TAB CHEW SCH (08:25)
[2016-11-10] MEDS: ESCITALOPRAM OXALATE 20 MG TAB PO SCH (08:25)
[2016-11-10] MEDS: amLODIPine BESYLATE 5 MG TAB PO SCH (08:25)
[2016-11-10] MEDS: LACTOBACILLUS ACIDOPHILUS TAB PO SCH ×2 (08:25→21:20)
[2016-11-10] MEDS: CLOPIDOGREL 75 MG TAB PO SCH (08:25)
--- NOTE | 2016-11-10 10:34 | RADRPT ---
EXAM DATE/TIME: 11/10/2016 10:19 [facility] COMPARISON: CHEST PA & LAT, November 08, 2016, 8:05. INDICATIONS : Short of Breath. MEDICAL HISTORY : Alzheimer's congestive heart failure. aneurysm, abdominal. hypertension. diabetes mellitus type ii. c ardiovascular disease. prostate cancer. SURGICAL HISTORY : Inguinal hernia repair. ENCOUNTER: Subsequent ACUITY: 4 - 6 days PAIN SCORE: Non-responsive. LOCATION: Bilateral chest FINDINGS: PA and lateral views of the chest demonstrates mild pulmonary venous congestion. Otherwise the lung f ields are clear and stable compared to the prior study. The heart size is stable. There no pleural ef fusions.. CONCLUSION: No significant interval change. Hussein Marroquin MD on November 10, 2016 at 10:32 Board Certified Radiologist. This report was verified electronically.
[2016-11-10] MEDS: traMADol HCL 50 MG TAB PO PRN (12:41)
--- NOTE | 2016-11-10 14:02 | HHI.PR ---
Subjective Remarks No new complaints. Objective Vitals Vital Signs Date Time Temp Pulse Resp B/P Pulse Ox O2 Delivery O2 Flow Rate FiO2 11/10/16 08:00 98.0 96 20 117/58 95 11/10/16 08:00 86 11/10/16 08:00 Nasal Cannula 2.00 30 11/10/16 04:00 98.0 83 18 113/57 95 11/10/16 00:00 98.5 70 18 120/57 93 11/09/16 20:00 72 11/09/16 20:00 98.2 71 18 110/55 99 11/09/16 19:41 Nasal Cannula 2.00 11/09/16 17:48 94 Nasal Cannula 2.00 11/09/16 16:00 98.9 73 20 114/55 91 11/09/16 11/09/16 11/10/16 15:00 23:00 07:00 Intake Total 1222 ml 240 ml Balance 1222 ml 240 ml Intake Oral 600 ml 240 ml IV Total 622 ml # Voids 2 0 # Bowel Movements 1 0 Result Diagram: 11/08/16 0724 11/10/16 0630 Imaging Last Impressions Head CT 11/04/16 0959 Signed Impressions: Service Date/Time: Friday, November 04, 2016 10:52 - CONCLUSION: 1. No acute abnormality seen. 2. Age-related atrophy. Andrew Dhaliwal MD Chest X-Ray 11/04/1659 Signed Impressions: Service Date/Time: Friday, November 04, 2016 09:57 - CONCLUSION: 1. Cardiomegaly. 2. Hazy density in the left chest likely representing some degree of effusion. Andrew Dhaliwal MD Chest CT 11/04/16 0000 Signed Impressions: Service Date/Time: Friday, November 04, 2016 14:25 - CONCLUSION: 1. Mild left pleural effusion with some accompanying atelectasis or consolidation at the posterior left lung base. 2. Minimal suspected atelectasis at the posterior right lower lobe. 3. Possible tiny gallstones. Andrew Dhaliwal MD Objective Remarks GENERAL: This is a well-nourished, well-developed patient, in no apparent distress. CARDIOVASCULAR: Regular rate and rhythm without murmurs, gallops, or rubs. RESPIRATORY: Clear to auscultation. Breath sounds equal bilaterally. No wheezes , rales, or rhonchi. GASTROINTESTINAL: Abdomen soft, non-tender, nondistended. Normal active bowel sounds MUSCULOSKELETAL: Extremities without clubbing, cyanosis, or edema. NEURO: Alert & Oriented x3, but confused at times. Moves all ext x4 A/P Problem List: (1) Acute worsening of stage 4 chronic kidney disease Status: Acute Plan: - Pt is 76 yr man recently admitted to [facility] for perineum abscess - then readmitted on 10/24 for hypercapneic respiratory failure, copd exacerbation - left lung pna, acute/ckd with volume overload. - He was sent to [facility] on 11/02 and then sent to [place] for sob/ams complaints. - acute on ckd 4..could be prerenal from diuretics - Pt's Creatinine was 1.59 (08/21/16) - Pt follows with Dr. Lozada - Creatinine 3.00 (11/04/16), Cr 2.61 (11/08/16), Cr 2.61 (11/09/16) - continue to hold diuretics - IVFs with NS with 20mEq KCL @ 75 ml/hour for 2 liters given without improvement of pt's creatinine - obtain US of kidney, bladder, and ureters - consult Nephrology - Case d/w pt's POA, Yue Rawls at length. POA requests DNR status. - PT, will d/c to Acute Rehab, [facility], at the end of this hospitalization - DVT prophylaxis (2) Chronic combined systolic and diastolic CHF (congestive heart failure) Status: Acute Plan: - echocardiogram (10/14/16), findings reviewed EF - EF 30-35% - diastolic dysfunction noted, but NOT staged - global hypokinesis - lasix on hold since admission d/t LUCINDA, will need to restart once renal fxn has improved - CXR (11/08/16) --> improved, less interstitial infiltrate from prior CXR (3) Altered mental status Status: Acute Plan: - CT brain (11/04/16) --> NO acute findings - likely multifactorial: dementia?, chronic hypercapnic respiratory failure, hypoglycemia, uremia - obtain free T4, folate, RPR --> WNL - TSH, B12 --> WNL - pt has underlying dementia (4) COPD (chronic obstructive pulmonary disease) Status: Chronic Plan: - Comgmt with Pulm Medicine, Dr. Thomason - likely anxiety, chronic hypercapnia contributing to SOB - continue duonebs, decrease to q6h - ABG (11/05/16) --> pCO2 53 mmHg - ABG (11/08/16) --> pCO2 55 mmHg - change BiPaP to CPAP, pt previously using home CPAP and having difficulty tolerating BiPaP d/t high pressure of mask (5) Chronic hypercapnic respiratory failure Status: Acute Plan: - see above (6) DM (diabetes mellitus) Status: Chronic Plan: - had hypoglycemia on admitssion of 63 - Pt was hypoglycemic this AM (11/05/16) at 45 and given juice - AM blood sugar (11/06/16) 68 (11/06/16) - levemir further decreased to 8 units BID, will adjust upwards if this proves necessary - continue SSI (7) CAD (coronary artery disease) Status: Chronic Plan: 4 stents per records cont home meds - echocardiogram --> pending - ASA, plavix, metoprolol, lipitor (8) HTN (hypertension) Status: Chronic Plan: - metoprolol, norvasc (9) Dementia Status: Chronic (10) Depression Status: Chronic Plan: still grieving loss of in June. very anxious and panicky also. - lexapro, xanax - Pt with sporadic difficulties with anxiety - request Psychiatry consultation - consider scheduled xanax or seroquel (11) Thrombocytopenia Status: Acute Plan: - observe Problem Qualifiers (1) Altered mental status: Qualified Code: R41.0 - Delirium (2) DM (diabetes mellitus): Qualified Code: E11.8 - Type 2 diabetes mellitus with complication, with long- term current use of insulin (3) CAD (coronary artery disease): Qualified Code: I25.10 - Coronary artery disease involving [place] heart without angina pectoris, unspecified vessel or lesion type (4) HTN (hypertension): Qualified Code: I10 - Essential hypertension (5) Dementia: Qualified Code: F03.91 - Dementia with behavioral disturbance, unspecified dementia type (6) Depression: Louie Chapin DO Nov 10, 2016 14:02
--- NOTE | 2016-11-10 15:24 | RADRPT ---
EXAM DATE/TIME: 11/10/2016 14:40 [facility] COMPARISON: No previous studies available for comparison. INDICATIONS : Increased Bun and Creatinine. MEDICAL HISTORY : Hypertension. Gastroesophageal reflux disease. Alzheimer's. Dementia. AAA. Afib. CHF. COPD. Diab etic. Renal insufficiency. SURGICAL HISTORY : Inguinal hernia repair. Back surgery. ENCOUNTER: Initial ACUITY: 1 week PAIN SCORE: 3/10 LOCATION: Bilateral flank MEASUREMENTS: RIGHT KIDNEY: 13.0 x 5.9 x 6.2 cm LEFT KIDNEY: 11.2 x 6.2 x 6.1 cm FINDINGS: RIGHT KIDNEY: The right kidney appears normal in size and shape with large simple cyst extending off the mid kidney measuring up to 10.6 x 7.2 cm in diameter. The kidney appears increased in echogenicity compared to the adjacent liver. There is no solid mass or hydronephrosis. LEFT KIDNEY: Suboptimal visualization due to the patient's body habitus. The kidney appears normal in size and sha pe with increased echogenicity. There is no focal lesion or hydronephrosis. BLADDER: Within normal limits given the degree of distension. CONCLUSION: 1. No evidence of hydronephrosis. 2. The kidneys appear increased in echogenicity most characteristic of medical renal disease. 3. Large simple cyst in the right kidney. 4. Suboptimal visualization. Vernon Krishna MD on November 10, 2016 at 15:20 Board Certified Radiologist. This report was verified electronically.
--- NOTE | 2016-11-10 15:56 | HHI.PR ---
Subjective Remarks 76 YOWM With COPD,SULEIMAN, Dementia,CKD Good appetite no Distress Uses his own CPAP Feels tired " I don't feel good" no specific complaint Objective Vital Signs Vital Signs Date Time Temp Pulse Resp B/P Pulse Ox O2 Delivery O2 Flow Rate FiO2 11/10/16 12:00 97.6 73 20 110/56 96 11/10/16 08:00 98.0 96 20 117/58 95 11/10/16 08:00 86 11/10/16 08:00 Nasal Cannula 2.00 30 11/10/16 04:00 98.0 83 18 113/57 95 11/10/16 00:00 98.5 70 18 120/57 93 11/09/16 20:00 72 11/09/16 20:00 98.2 71 18 110/55 99 11/09/16 19:41 Nasal Cannula 2.00 11/09/16 17:48 94 Nasal Cannula 2.00 11/09/16 16:00 98.9 73 20 114/55 91 I/O 11/09/16 11/09/16 11/09/16 11/10/16 11/10/16 11/10/16 07:00 15:00 23:00 07:00 15:00 23:00 Intake Total 676 ml 1222 ml 240 ml Balance 676 ml 1222 ml 240 ml Intake Oral 100 ml 600 ml 240 ml IV Total 576 ml 622 ml # Voids 1 2 0 # Bowel Movements 0 1 0 Result Diagram: 11/08/16 0724 11/10/16 0630 Objective Remarks GENERAL: WMWN WM, mild sob SKIN: Warm and dry. HEAD: Normocephalic. EYES: No scleral icterus. No injection or drainage. NECK: Supple, trachea midline. No JVD or lymphadenopathy. CARDIOVASCULAR: Regular rate and rhythm without murmurs, gallops, or rubs. RESPIRATORY: Breath sounds equal bilaterally. No accessory muscle use. GASTROINTESTINAL: Abdomen soft, non-tender, nondistended. MUSCULOSKELETAL: No cyanosis, or edema. BACK: Nontender without obvious deformity. No CVA tenderness. A/P Assessment and Plan COPD SULEIMAN Compensated resp acidosis CKD AF Dementia PLAN: Pt will use his own CPAP Supplement 02 Aerosol nebs Monitor BS Encourage po DW Matt Dye MD Nov 10, 2016 15:56
[2016-11-10] MEDS: MIRTAZAPINE 15 MG TAB PO SCH (21:20)
[2016-11-10] MEDS: ATORVASTATIN 80 MG TAB PO SCH (21:20)
--- NOTE | 2016-11-10 23:13 | MB ---
cc: TONIO ANGEL MD DATE OF CONSULTATION 11/10/16 REASON FOR CONSULTATION Elevated BUN and creatinine for evaluation. HISTORY OF PRESENT ILLNESS This is a 76-year-old male with past medical history of ischemic heart disease, diabetes mellitus, chronic kidney disease, history of underlying dementia who was admitted with altered mental status. I was called to see the patient for elevated BUN and creatinine. The patient is known to me from his admissions at [facility] where he was admitted with left renal cyst. He also has congestive heart failure and chronic kidney disease with gradual worsening and acute kidney injury. His creatinine at that time was 2.2. The patient seems to be confused and now he is not able to remember all this. He knows that he is at [facility], but he does not know why he is here. On presentation, it was found that his creatinine was 3.0. Then it improved to 2.39 and now it has gone up slightly to 2.61. The patient denies any shortness of breath. He has been followed by pulmonary here and he was also seen by the psychiatrist. The patient denies any dysuria, hematuria. He does not have any nausea, vomiting or diarrhea. PAST MEDICAL HISTORY 1. Hypertension, 2. Diabetes mellitus, 3. Ischemic heart disease, 4. Congestive heart failure, 5. Chronic kidney disease, 6. Chronic obstructive pulmonary disease, 7. History of depression. SOCIAL HISTORY The patient currently lives in a nursing facility. There is no history of smoking. He has a history of alcoholism in the past. FAMILY HISTORY Noncontributory. REVIEW OF SYSTEMS The patient has generalized weakness. Feeling tired. He is still confused, oriented to place and person only. He denies any shortness of breath. No headache, dizziness or blurring of vision, no chest pain, no palpitation. Denies any nausea, vomiting. No abdominal pain. No history of diarrhea. ALLERGIES NO KNOWN DRUG ALLERGIES. MEDICATIONS Currently 1. Colace 100 mg b.i.d. 2. Amlodipine 5 mg once a day. 3. Aspirin 81 mg daily. 4. Plavix 75 mg daily. 5. Lexapro 20 mg once a day. 6. Metoprolol 25 mg once a day. 7. Potassium chloride 10 mEq once a day. 8. Lipitor 80 mg q.h.s. 9. Remeron 15 mg q.h.s. 10. Levemir insulin 8 units subcu 12-hour. 12. Insulin aspart sliding scale 13. Xanax 0.5 mg p.r.n. PHYSICAL EXAMINATION GENERAL: On examination, the patient is awake, alert and oriented x1 and he is not in acute distress. VITAL SIGNS: Last blood pressure is 144/79, temperature is 97.6, oxygen saturation on 2 liters nasal cannula is 97-98%. HEENT: Pupils equally reacting to light. Nonicteric sclerae. Conjunctivae pale. NECK: Supple. JVD is not elevated. LUNGS: The patient has bilateral decreased air entry with scattered wheezing. HEART: S1, S2 regular rhythm. ABDOMEN: Soft, lax. There is no tenderness. Bowel sounds positive. EXTREMITIES: There is mild edema in the legs. LABORATORY DATA WBC count is 9.2, hemoglobin 9.6, platelet count 105, neutrophils 79.3%, eosinophil 3.4%. Sodium 142. Potassium 4.3, chloride 103, bicarb 33.6, BUN 40, creatinine 2.6. Calcium 7.9, magnesium 2.2, INR 1.0. Urinalysis showing protein of 30, urine drug screen was positive for benzodiazepine. LEXII was negative. RPR was also nonreactive. Vitamin B12 was 520, ammonia level was less than 10. Folic acid was 8.6. The TSH was 2.9. IMAGING STUDIES The patient has ultrasound of the kidneys done which showed that he has right kidney 13 cm. The left kidney 11.2 cm. There was large simple cyst extending near the area of the right kidney. Chest x-ray was done which shows pulmonary venous congestion. CT scan of the brain was done without IV contrast and it shows no acute abnormality. Age related atrophy. ASSESSMENT/PLAN 1. Chronic kidney disease. 2. Acute kidney injury 3. Congestive heart failure 4. Altered mental status. 5. Anemia. 6. COPD. 7. Diabetes mellitus 8. Hypertension The patient has proteinuria and underlying chronic kidney disease. There is a possibility of acute kidney injury also. Chronic kidney disease most likely related to underlying diabetic or hypertensive nephropathy and there is some acute worsening possibly related to ATN or interstitial nephritis. At present, he is off any diuretics. He was on some diuretic when he was at [facility]. He is still on potassium supplement. The last potassium we have was 4.3. He had negative LEXII and I will send a serum protein electrophoresis since he is also having anemia. At present, he does not have any fluid overload, so no need for diuretics at present. Avoid any nephrotoxins. Follow the urine output and the BUN and creatinine. Thank you for the consultation. I will follow the patient while he is in the hospital. MD GARRET Allen/ /10:21 PM /10:49 PM
[2016-11-11] VITALS: BP 135/63; PULSE 67; RESP 20; TEMP 97.8; O2SAT 96
[2016-11-11 04:00] VITALS: BP 146/60; PULSE 62; RESP 20; TEMP 97.8; O2SAT 96
[2016-11-11] MEDS: INSULIN ASPART SUPPLEMENTAL SCALE SQ SCH ×4 (06:04→20:26)
[2016-11-11 08:00] VITALS: BP 155/68; PULSE 81; RESP 32; TEMP 97.6; O2SAT 99
[2016-11-11 08:00] LABS: TOTAL PROTEIN SPE 6.1 GM/DL (6.0-7.6)
[2016-11-11] MEDS: INSULIN DETEMIR 100 UNITS/ML VIAL SQ SCH ×2 (09:00→20:26)
[2016-11-11] MEDS: ASPIRIN 81 MG CHEW TAB CHEW SCH (09:48)
[2016-11-11] MEDS: POTASSIUM CHLORIDE 10 MEQ CONTROLLED RELEASE TAB PO SCH (09:49)
[2016-11-11] MEDS: amLODIPine BESYLATE 5 MG TAB PO SCH (09:49)
[2016-11-11] MEDS: LACTOBACILLUS ACIDOPHILUS TAB PO SCH ×2 (09:49→20:27)
[2016-11-11] MEDS: ESCITALOPRAM OXALATE 20 MG TAB PO SCH (09:49)
[2016-11-11] MEDS: CLOPIDOGREL 75 MG TAB PO SCH (09:49)
[2016-11-11] MEDS: METOPROLOL SUCCINATE 25 MG EXTENDED RELEASE TAB PO SCH (09:49)
[2016-11-11] MEDS: DOCUSATE SODIUM 100 MG CAP PO SCH ×2 (09:49→20:27)
[2016-11-11 12:00] VITALS: BP 111/59; PULSE 97; RESP 32; TEMP 97.3; O2SAT 96
--- NOTE | 2016-11-11 12:39 | HHI.NPPN ---
Subjective General Problems: Anemia, Edema, Heart Disease Renal Failure: Chronic, Acute, Stage IV History of Present Illness 76-year-old male with past medical history of ischemic heart disease, diabetes mellitus, chronic kidney disease, history of underlying dementia who was admitted with altered mental status. I was called to see the patient for elevated BUN and creatinine. The patient is known to me from his admissions at [facility]. Additional Remarks Patient is alert, no SOB, not eating well, still forgetful. Review of Systems General Constitutional: Fatigue Respiratory Lungs: SOB Cardiovascular Cardiac: OLEA Objective Data Data 11/10/16 11/11/16 19:00 07:00 Intake Total 900 ml 240 ml Output Total 400 ml Balance 500 ml 240 ml Intake Oral 900 ml 240 ml Output Urine Total 400 ml # Voids 1 1 # Bowel Movements 3 Vital Signs Date Time Temp Pulse Resp B/P Pulse Ox O2 Delivery O2 Flow Rate FiO2 11/11/16 12:00 97.3 97 32 111/59 96 11/11/16 08:00 97.6 81 32 155/68 99 11/11/16 04:00 97.8 62 20 146/60 96 11/11/16 00:00 97.8 67 20 135/63 96 11/10/16 21:00 Nasal Cannula 2.00 11/10/16 20:00 97.6 63 20 144/79 97 11/10/16 16:37 98.1 70 22 124/57 98 11/10/16 15:00 81 11/10/16 12:38 93 Nasal Cannula 2.00 -: 11/08/16 0724 11/10/16 0630 Physical Exam General Appearance: No Acute Distress, Comfortable Eyes Eye Exam: Pupils Equal Throat Throat Exam: Oral Mucosa [place] & Moist Pulmonary Resp Exam: Breath Sounds Equal, No Distress, Decreased Bases Cardiology CV Exam: Regular, Normal Sinus Rhythm Gastrointestinal/Abdomen GI Exam: Soft, Non-Tender, Bowel Sounds Present, Distended Extremeties Extremities Exam: Trace Edema Neurologic Neuro Exam: Alert, Awake Psychiatric Psych Exam: Appropriate Responses Assessment/Plan Assessment Summary: TRAN/Acute Renal Failure, Anemia of CKD, CHF, Hypertension, CKD Stage IV Problem List: (1) Altered mental status (2) DM (diabetes mellitus) (3) COPD (chronic obstructive pulmonary disease) (4) Dementia (5) HTN (hypertension) (6) Acute worsening of stage 4 chronic kidney disease Plan Patient has been non oliguric. No new BMP. Creatinine was 2.6 yesterday. SPEP is PND. Po4 is normal, non oliguric. Off diuretics for now. Follow BMP, avoid Nephrotoxins. Problem Qualifiers (1) Altered mental status: Qualified Code: R41.0 - Delirium (2) DM (diabetes mellitus): Qualified Code: E11.8 - Type 2 diabetes mellitus with complication, with long- term current use of insulin (3) Dementia: Qualified Code: F03.91 - Dementia with behavioral disturbance, unspecified dementia type (4) HTN (hypertension): Qualified Code: I10 - Essential hypertension Sonia Song MD Nov 11, 2016 12:39
[2016-11-11] MEDS ORDERED: DOCU1CAP39 PO (14:56)
[2016-11-11] MEDS ORDERED: ALPR0.5T3 PO (14:56)
[2016-11-11] MEDS ORDERED: MIRTA15 PO (14:56)
[2016-11-11] MEDS ORDERED: LEVEMIR SQ (14:56)
[2016-11-11] MEDS ORDERED: FURO1TAB62 PO (14:56)
[2016-11-11] MEDS ORDERED: FLEEENE3 PR (14:56)
[2016-11-11] MEDS ORDERED: ULTR50TA5 PO (14:56)
[2016-11-11] MEDS ORDERED: IPRASOL INH (14:56)
--- NOTE | 2016-11-11 15:06 | HHI.DS ---
Discharge Summary Admission Date Nov 04, 2016 at 11:31 Discharge Date: Nov 12, 2016 Admitting Diagnosis ams (1) Acute worsening of stage 4 chronic kidney disease Diagnosis: Principal (2) Chronic combined systolic and diastolic CHF (congestive heart failure) Diagnosis: Secondary (3) Altered mental status Diagnosis: Principal (4) COPD (chronic obstructive pulmonary disease) Diagnosis: Principal (5) Chronic hypercapnic respiratory failure Diagnosis: Principal (6) DM (diabetes mellitus) Diagnosis: Secondary (7) CAD (coronary artery disease) Diagnosis: Secondary (8) HTN (hypertension) Diagnosis: Secondary (9) Dementia Diagnosis: Secondary (10) Depression Diagnosis: Secondary (11) Thrombocytopenia Diagnosis: Secondary Consultants Dr. Darryl Song, Nephrology Dr. Matt Thomason, Pulmonary Medicine Dr. Robbie Colón, Psychiatry Brief History Pt is 76 yo with ckd 4,cad,dm,dementia,copd who was sent to ED from [facility] at request of daughter for waxing and waning mental status. Pt has some degree of dementia but able to give some history. He is currently very tearful and anxious/panicky due to of his in June. He was admitted to [facility] for drainage of perineum abscess then discharged and readmitted 2 days later on 10/24/16 per records. On review of records he was readmitted for volume overload, acute/ckd, sob and copd exacerbation and possible pneumonia in left lower lung. he was seen by nephrology and pulmonary during that hospital stay. His admitting labs included h/h of , wbc 11.9, plt 224. abg 7.29/66/58/92% on nasal canula. bnp 470, bun 31, cr 2.2, gfr 29. he was admitted to ICU for hypercapneic respiratory failure and placed on bipap. he was given iv solumedrol, nebs, treated with Ceftarolin throughout the hospital course and MAR also indicated bumex 4mg iv q6hr from 10/29 to 11/02. On discharge on 11/02 his wbc was 9.8, hgb 10.7, plt 186, bun 66, cr 2.7 and gfr 23. Albumin 3.2. He again now presents today from snf for "AMS". Pt says his main problem is intermittent sob. CBC/BMP: 11/08/16 0724 11/10/16 0630 Significant Findings Laboratory Tests Test 11/09/16 11/10/16 16:40 06:30 Carbon Dioxide Level 33.1 MEQ/L 33.6 MEQ/L (21.0-32.0) (21.0-32.0) Blood Urea Nitrogen 41 MG/DL (7-18) 40 MG/DL (7-18) Creatinine 2.61 MG/DL 2.61 MG/DL (0.60-1.30) (0.60-1.30) Estimat Glomerular Filtration 24 ML/MIN (>89) 24 ML/MIN (>89) Rate Random Glucose 174 MG/DL 205 MG/DL (74-106) (74-106) Calcium Level 7.5 MG/DL 7.9 MG/DL (8.5-10.1) (8.5-10.1) Imaging Last Impressions Chest X-Ray 11/10/16 0800 Signed Impressions: Service Date/Time: Thursday, November 10, 2016 10:19 - CONCLUSION: No significant interval change. Hussein Marroquin MD Renal Ultrasound 11/10/16 0000 Signed Impressions: Service Date/Time: Thursday, November 10, 2016 14:40 - CONCLUSION: 1. No evidence of hydronephrosis. 2. The kidneys appear increased in echogenicity most characteristic of medical renal disease. 3. Large simple cyst in the right kidney. 4. Suboptimal visualization. Vernon Krishna MD Head CT 11/04/16 0959 Signed Impressions: Service Date/Time: Friday, November 04, 2016 10:52 - CONCLUSION: 1. No acute abnormality seen. 2. Age-related atrophy. Andrew Dhaliwal MD Chest CT 11/04/16 0000 Signed Impressions: Service Date/Time: Friday, November 04, 2016 14:25 - CONCLUSION: 1. Mild left pleural effusion with some accompanying atelectasis or consolidation at the posterior left lung base. 2. Minimal suspected atelectasis at the posterior right lower lobe. 3. Possible tiny gallstones. Andrew Dhaliwal MD PE at Discharge GENERAL: This is a well-nourished, well-developed patient, in no apparent distress. CARDIOVASCULAR: Regular rate and rhythm without murmurs, gallops, or rubs. RESPIRATORY: Clear to auscultation. Breath sounds equal bilaterally. No wheezes , rales, or rhonchi. GASTROINTESTINAL: Abdomen soft, non-tender, nondistended. Normal active bowel sounds MUSCULOSKELETAL: Extremities without clubbing, cyanosis, or edema. NEURO: Alert & Oriented x3, but confused at times. Moves all ext x4 Hospital Course (1) Acute worsening of stage 4 chronic kidney disease Status: Acute Plan: - Pt is 76 yr man recently admitted to [facility] for perineum abscess - then readmitted on 10/24 for hypercapneic respiratory failure, copd exacerbation - left lung pna, acute/ckd with volume overload. - He was sent to [facility] on 11/02 and then sent to [place] for sob/ams complaints. - acute on ckd 4..could be prerenal from diuretics - Pt's Creatinine was 1.59 (08/21/16) - Pt follows with Dr. Lozada - Creatinine 3.00 (11/04/16), Cr 2.61 (11/08/16), Cr 2.61 (11/09/16) - IVFs with NS with 20mEq KCL @ 75 ml/hour for 2 liters given without improvement of pt's creatinine - US of kidney, bladder, and ureters (11/10/16) --> no acute obstruction. Findings are c/w medical renal disease. - Case reviewed with Dr. Darryl Song, nephrology, (11/11/16) - in view of pt's elevated BUN/CR, likely worsening renal disease which did NOT improve much with IVFs - in view of pt's Cardiomyopathy & volume overload diagnosed during pt's hospitalization at [facility] - will discharge to pt on lasix 20mg PO daily & KCL 10 mEq daily - f/u with Dr. Song outpt in 3 wees - Case d/w pt's POA, Yue Rawls at length (11/10/16). POA requests DNR status. - PT, will d[facility], at the end of this hospitalization - orders written for discharge to [place] in AM 11/12/16. See orders (2) Chronic combined systolic and diastolic CHF (congestive heart failure) Status: Acute Plan: - echocardiogram (10/14/16), findings reviewed EF - EF 30-35% - diastolic dysfunction noted, but NOT staged - global hypokinesis - lasix on hold since admission d/t LUCINDA, will need to restart once renal fxn has improved - CXR (11/08/16) --> improved, less interstitial infiltrate from prior CXR - pt should continue CPAP at night with home settings (3) Altered mental status Status: Acute Plan: - CT brain (11/04/16) --> NO acute findings - likely multifactorial: dementia?, chronic hypercapnic respiratory failure, hypoglycemia, uremia - obtain free T4, folate, RPR --> WNL - TSH, B12 --> WNL - pt has underlying dementia which was d/w pt's POA (4) COPD (chronic obstructive pulmonary disease) Status: Chronic Plan: - Comgmt with Pulm Medicine, Dr. Thomason - likely anxiety, chronic hypercapnia contributing to SOB - continue duonebs, decrease to q6h - ABG (11/05/16) --> pCO2 53 mmHg - ABG (11/08/16) --> pCO2 55 mmHg - change BiPaP to CPAP, pt previously using home CPAP and having difficulty tolerating BiPaP d/t high pressure of mask (5) Chronic hypercapnic respiratory failure Status: Acute Plan: - see above (6) DM (diabetes mellitus) Status: Chronic Plan: - had hypoglycemia on admitssion of 63 - Pt was hypoglycemic this AM (11/05/16) at 45 and given juice - AM blood sugar (11/06/16) 68 (11/06/16) - levemir further decreased to 8 units BID, will adjust upwards if this proves necessary - continue SSI (7) CAD (coronary artery disease) Status: Chronic Plan: 4 stents per records cont home meds - echocardiogram --> pending - ASA, plavix, metoprolol, lipitor (8) HTN (hypertension) Status: Chronic Plan: - metoprolol, norvasc (9) Dementia Status: Chronic (10) Depression Status: Chronic Plan: still grieving loss of in June. very anxious and panicky also. - lexapro, xanax - Pt with sporadic difficulties with anxiety - request Psychiatry consultation - consider scheduled xanax or seroquel (11) Thrombocytopenia Status: Acute Plan: - observe Pt Condition on Discharge: Stable Discharge Disposition: Rehab Inpatient Discharge Instructions DIET: Follow Instructions for: Heart Healthy Diet Activities you can perform: Weight Bearing as Valeriy Follow up Referrals: Nephrology - [address] Darryl Song PCP Follow-up - [address] Mason Joiner f/u with PCP, Dr. Mason Joiner, one week after discharge from Acute Rehab New Medications: Furosemide (Lasix) 20 Mg Tab 20 MG PO DAILY CARDIOMYOPATHY #30 Ref 0 TAB Docusate Sodium (Dok) 100 Mg Cap 100 MG PO BID CONSTIPATION Days 30 Ref 0 CAP Insulin Detemir Inj (Levemir Inj) 1,000 unit/ 10 ML Vial 8 UNITS SQ Q12HR DM2 Days 30 Ref 0 INJECTION Mirtazapine (Mirtazapine) 15 Mg Tab 15 MG PO HS DEPRESSION Days 30 Ref 0 TAB Sodium Phosphates Rectal (Fleet Enema Rectal) 7-19 Gm/118 Ml Enem 133 ML OR DAILY PRN CONSTIPATION Days 30 Ref 0 SUPP Tramadol (Ultram) 50 Mg Tab 25 MG PO Q12H PRN PAIN SCALE 5-10 #15 Ref 0 TAB Changed Medications: Ipratropium-Albuterol Neb (Duoneb) 0.5-2.5 Mg/3 Ml Neb 1 NEBULE INH Q6HR PRN SOB/WHEEZING #120 Ref 0 NEBULE (Changed from: Q4HR NEB) Continued Medications: Alprazolam (Alprazolam) 0.5 Mg Tab 0.5 MG PO Q8H PRN ANXIETY #15 Ref 0 TAB (This prescription has been renewed) Amlodipine (Norvasc) 5 Mg Tab 5 MG PO DAILY Blood Pressure Management #30 Ref 0 TAB Aspirin (Aspirin 81 Low Dose) 81 Mg Chew 81 MG CHEW DAILY #30 TAB Clopidogrel (Plavix) 75 Mg Tab 75 MG PO DAILY Blood Clot Prevention #30 Ref 0 TAB Escitalopram (Lexapro) 20 Mg Tab 20 MG PO DAILY #30 Ref 0 TAB Famotidine (Famotidine) 20 Mg Tab 20 MG PO BID #60 Ref 0 TAB Insulin Aspart Inj (Novolog Inj) 1,000 Unit/10 Ml Vial 0 SQ DIRECTED Sliding Scale as directed. Blood Sugar Management #10 Ref 0 ML Metoprolol Succinate ER 24 HR (Metoprolol Succinate ER 24 HR) 25 Mg Tab 25 MG PO DAILY #30 Ref 0 TAB Potassium Chloride ER (Potassium Chloride CR) 10 Meq Tab 10 MEQ PO DAILY TAB Rosuvastatin (Crestor) 40 Mg Tab 40 MG PO HS Cholesterol Management #30 Ref 0 TAB Discontinued Medications: Bumetanide (Bumex) 2 Mg Tab 2 MG PO BID Ref 0 TAB Cefuroxime (Ceftin) 500 Mg Tab 500 MG PO BID Infection Ref 0 TAB Insulin Glargine Inj (Lantus Inj) 100 Unit/Ml Inj 60 UNITS SQ daily@0800 Insulin Glargine Inj (Lantus Inj) 100 Unit/Ml Inj 30 UNITS SQ daily@2000 Saccharomyces Boulardii (Florastor) 250 Mg Cap 500 MG PO BID Nutritional Supplement Ref 0 CAP Tramadol (Tramadol) 50 Mg Tab 100 MG PO Q6H PRN PAIN Ref 0 TAB Louie Chapin DO Nov 11, 2016 15:06
[2016-11-11 16:00] VITALS: BP 114/58; PULSE 65; RESP 28; TEMP 97.7; O2SAT 98
--- NOTE | 2016-11-11 16:58 | HHI.PR ---
Subjective Remarks 76 YOWM With COPD,SULEIMAN, Dementia,CKD Good appetite no Distress Uses his own CPAP Feels tired Family at BS Objective Vital Signs Vital Signs Date Time Temp Pulse Resp B/P Pulse Ox O2 Delivery O2 Flow Rate FiO2 11/11/16 12:00 97.3 97 32 111/59 96 11/11/16 09:30 Nasal Cannula 2.00 30 11/11/16 08:00 97.6 81 32 155/68 99 11/11/16 04:00 97.8 62 20 146/60 96 11/11/16 00:00 97.8 67 20 135/63 96 11/10/16 21:00 Nasal Cannula 2.00 11/10/16 20:00 97.6 63 20 144/79 97 I/O 11/10/16 11/10/16 11/10/16 11/11/16 11/11/16 11/11/16 07:00 15:00 23:00 07:00 15:00 23:00 Intake Total 480 ml 660 ml Output Total 400 ml Balance 480 ml 260 ml Intake Oral 480 ml 660 ml Output Urine Total 400 ml # Voids 1 1 # Bowel Movements 2 1 Result Diagram: 11/08/16 0724 11/10/16 0630 Objective Remarks GENERAL: WMWN WM, mild sob SKIN: Warm and dry. HEAD: Normocephalic. EYES: No scleral icterus. No injection or drainage. NECK: Supple, trachea midline. No JVD or lymphadenopathy. CARDIOVASCULAR: Regular rate and rhythm without murmurs, gallops, or rubs. RESPIRATORY: Breath sounds equal bilaterally. No accessory muscle use. GASTROINTESTINAL: Abdomen soft, non-tender, nondistended. MUSCULOSKELETAL: No cyanosis, or edema. BACK: Nontender without obvious deformity. No CVA tenderness. A/P Assessment and Plan COPD SULEIMAN Compensated resp acidosis CKD AF Dementia PLAN: Pt will use his own CPAP Supplement 02 Aerosol nebs Monitor BS Encourage po DW Humidify 02 DC plans for [facility] Matt Thomason MD Nov 11, 2016 16:58
[2016-11-11 20:00] VITALS: BP 129/61; PULSE 64; PULSE 79; RESP 18; TEMP 97.9; O2SAT 99
[2016-11-11] MEDS: ALPRAZolam 0.5 MG TAB PO PRN (20:25)
[2016-11-11] MEDS: MIRTAZAPINE 15 MG TAB PO SCH (20:27)
[2016-11-11] MEDS: ATORVASTATIN 80 MG TAB PO SCH (20:27)
[2016-11-12] VITALS: BP 130/68; PULSE 67; RESP 18; TEMP 98.2; O2SAT 99
[2016-11-12 04:00] VITALS: BP_SYST 108; BP_SYST 130; BP_DIAS 56; BP_DIAS 68; PULSE 67; PULSE 75; RESP 18; TEMP 97.6; TEMP 98.2; O2SAT 95; O2SAT 99
[2016-11-12] MEDS: INSULIN ASPART SUPPLEMENTAL SCALE SQ SCH ×2 (06:07→13:00)
[2016-11-12 06:59] LABS: BICARBONATE 26.9 MEQ/L (21.0-32.0); POTASSIUM 4.6 MEQ/L (3.5-5.1)
[2016-11-12 08:00] VITALS: BP 140/65; PULSE 73; RESP 32; TEMP 97.3; O2SAT 98
[2016-11-12] MEDS: INSULIN DETEMIR 100 UNITS/ML VIAL SQ SCH (09:57)
[2016-11-12] MEDS: SODIUM CHLORIDE 0.9% FLUSH 5 ML FLUSH IVF PRN (09:57)
[2016-11-12] MEDS: ASPIRIN 81 MG CHEW TAB CHEW SCH (09:57)
[2016-11-12] MEDS: LACTOBACILLUS ACIDOPHILUS TAB PO SCH (09:57)
[2016-11-12] MEDS: METOPROLOL SUCCINATE 25 MG EXTENDED RELEASE TAB PO SCH (09:57)
[2016-11-12] MEDS: amLODIPine BESYLATE 5 MG TAB PO SCH (09:57)
[2016-11-12] MEDS: ESCITALOPRAM OXALATE 20 MG TAB PO SCH (09:57)
[2016-11-12] MEDS: DOCUSATE SODIUM 100 MG CAP PO SCH (09:57)
[2016-11-12] MEDS: ALPRAZolam 0.5 MG TAB PO PRN (09:57)
[2016-11-12] MEDS: POTASSIUM CHLORIDE 10 MEQ CONTROLLED RELEASE TAB PO SCH (09:57)
[2016-11-12] MEDS: CLOPIDOGREL 75 MG TAB PO SCH (09:57)
[2016-11-12 11:19] VITALS: O2SAT 97
[2016-11-12 12:00] VITALS: BP 130/59; PULSE 64; RESP 28; TEMP 97.8; O2SAT 99
[2016-11-12] MEDS: traMADol HCL 50 MG TAB PO PRN (12:59)
[2016-11-12 13:04] LABS: ALBUMIN SPE 2.93 GM/DL (3.50-5.00); ALPHA 1 GLOBULIN 0.26 GM/DL (0.11-0.29); ALPHA 2 GLOBULIN 0.99 GM/DL (0.22-1.00); BETA GLOBULINS (SPE) 0.94 GM/DL (0.53-1.03)
[2016-11-12 16:00] VITALS: BP 126/62; PULSE 61; RESP 32; TEMP 97.7; O2SAT 100
--- NOTE | 2016-11-12 17:42 | HHI.NPPN ---
Subjective General Problems: Anemia, Edema, Heart Disease Renal Failure: Chronic, Acute, Stage IV History of Present Illness 76-year-old male with past medical history of ischemic heart disease, diabetes mellitus, chronic kidney disease, history of underlying dementia who was admitted with altered mental status. I was called to see the patient for elevated BUN and creatinine. The patient is known to me from his admissions at [facility]. Additional Remarks Patient is alert, now eating better, no SOB. Review of Systems General Constitutional: Fatigue Respiratory Lungs: SOB Cardiovascular Cardiac: OLEA Objective Data Data 11/11/16 11/12/16 19:00 07:00 Intake Total 480 ml Balance 480 ml Intake Oral 480 ml # Bowel Movements 2 Vital Signs Date Time Temp Pulse Resp B/P Pulse Ox O2 Delivery O2 Flow Rate FiO2 11/12/16 16:00 97.7 61 32 126/62 100 11/12/16 14:06 18 11/12/16 12:00 97.8 64 28 130/59 99 11/12/16 11:19 97 Nasal Cannula 3.00 11/12/16 10:24 Nasal Cannula 2.00 30 11/12/16 08:00 97.3 73 32 140/65 98 11/12/16 04:00 98.2 67 18 130/68 99 11/12/16 00:00 98.2 67 18 130/68 99 11/11/16 20:00 79 11/11/16 20:00 Nasal Cannula 2.00 11/11/16 20:00 Nasal Cannula 2.00 11/11/16 20:00 97.9 64 18 129/61 99 -: 11/08/16 0724 11/12/16 0540 Physical Exam General Appearance: No Acute Distress, Comfortable Eyes Eye Exam: Pupils Equal Throat Throat Exam: Oral Mucosa [place] & Moist Pulmonary Resp Exam: Breath Sounds Equal, No Distress, Decreased Bases Cardiology CV Exam: Regular, Normal Sinus Rhythm Gastrointestinal/Abdomen GI Exam: Soft, Non-Tender, Bowel Sounds Present, Distended Extremeties Extremities Exam: Trace Edema Neurologic Neuro Exam: Alert, Awake Psychiatric Psych Exam: Appropriate Responses Assessment/Plan Assessment Summary: TRAN/Acute Renal Failure, Anemia of CKD, CHF, Hypertension, CKD Stage IV Problem List: (1) Altered mental status (2) DM (diabetes mellitus) (3) COPD (chronic obstructive pulmonary disease) (4) Dementia (5) HTN (hypertension) (6) Acute worsening of stage 4 chronic kidney disease Plan Patient has been non oliguric. No new BMP. SPEP showing no abnormal bands. Po4 is normal, non oliguric. Follow BMP, avoid Nephrotoxins. Creatinine is better, can start Lasix 20 mg daily as he has CHF and low EF. If D/C, I will follow him in 2 weeks. Problem Qualifiers (1) Altered mental status: Qualified Code: R41.0 - Delirium (2) DM (diabetes mellitus): Qualified Code: E11.8 - Type 2 diabetes mellitus with complication, with long- term current use of insulin (3) Dementia: Qualified Code: F03.91 - Dementia with behavioral disturbance, unspecified dementia type (4) HTN (hypertension): Qualified Code: I10 - Essential hypertension Sonia Song MD Nov 12, 2016 17:42
== END 2016-11-12 18:10 | DRG 292 ==
LOC: NEPA 09:14 → NEDA 11:31 → N04A 16:47
PROVIDERS: ADMIT Hospitalist; ATTEND Hospitalist
DX: I13.0 Hypertensive heart and chronic kidney disease with heart failure and stage 1 through stage 4 chronic kidney disease, or unspecified chronic kidney disease (principal); N17.9 Acute kidney failure, unspecified; J96.12 Chronic respiratory failure with hypercapnia; N18.4 Chronic kidney disease, stage 4 (severe); E87.2 Acidosis; D69.6 Thrombocytopenia, unspecified; E11.22 Type 2 diabetes mellitus with diabetic chronic kidney disease; F02.81 Dementia in other diseases classified elsewhere, unspecified severity, with behavioral disturbance; I42.9 Cardiomyopathy, unspecified; G30.9 Alzheimer's disease, unspecified; F32.1 Major depressive disorder, single episode, moderate; I50.42 Chronic combined systolic (congestive) and diastolic (congestive) heart failure; E11.42 Type 2 diabetes mellitus with diabetic polyneuropathy; E11.649 Type 2 diabetes mellitus with hypoglycemia without coma; D63.1 Anemia in chronic kidney disease; E78.5 Hyperlipidemia, unspecified; I25.10 Atherosclerotic heart disease of native coronary artery without angina pectoris; Z79.84 Long term (current) use of oral hypoglycemic drugs; Z66 Do not resuscitate; G47.33 Obstructive sleep apnea (adult) (pediatric); I48.91 Unspecified atrial fibrillation; I71.4 Abdominal aortic aneurysm, without rupture; I73.9 Peripheral vascular disease, unspecified
CPT/HCPCS: 36600; 70450; 71010; 71020; 71250; 76775; 80048; 80053; 80307; 81001; 82140; 82550; 82607; 82746; 82805; 82948; 83605; 83735; 84100; 84165; 84439; 84443; 84484; 85025; 85610; 85652; 86038; 86592; 87040; 87086; 93005; 93306; 94003; 94640; 94664; J1815